=== PATIENT | female | born 1990 | race Caucasian/White ===

== ENCOUNTER → 2017-03-09 | Outpatient (CLI) | payer SELFPAY ==
[~2017-03-09] MED LIST: ALBU17AE3 IH; ALBUTEROL INHALER; ALPR0.5T PO; ALPR1T PO; AMOX500C2 PO; BACL20TA PO; CEPH-507 PO; CITA10TA70 PO; CITA20TA12 PO; CLINDAMYCIN PO; CROT60CR TP; CYCL10TA9 PO; DOXY100C2 PO; ERYT1OIN6 OP; FLUC200T45 PO; FRS325T; GUAI120S36 PO; HYDR-3714 PO; HYDR1CAP2; HYDR25CA5 PO; HYDR50CA PO; IBP800T PO; IBUP-1773 PO; IBUPROFEN; LEVO750T6 PO; METH4TAB PO; METR500T PO; MNTL10T; NAPR-243 PO; NITR-65 PO; NITR100C3 PO; ONDA-42 SL; ONDA8TAB13 PO; OXYC1TAB12 PO; PHEN200T27 PO; PRD20T PO; PREN1TAB39; PROP10TA8 PO; SULF1TAB35 PO; TEMA7.5C PO; TRAM50TA2 PO
[2017-03-11 17:31] LABS: PROGESTERONE 11.94 ng/mL
== END | disposition home or self-care (01) ==
LOC: LAB 17:42
PROVIDERS: ATTEND Obstetrics & Gynecology
DX: N97.9 Female infertility, unspecified (principal)
CPT/HCPCS: 36415; 82670; 84144

== ENCOUNTER → 2017-03-14 | Outpatient (CLI) | payer SELFPAY | LOC: LAB 17:54 | PROVIDERS: ATTEND Obstetrics & Gynecology | DX: N97.9 Female infertility, unspecified (principal) | CPT/HCPCS: 36415; 84144 ==

== ENCOUNTER 2017-04-13 17:21 | Emergency (ER) | payer SELFPAY ==
[~2017-04-13] VITALS: Ht 154.9 cm; Wt 83.9 kg
--- NOTE | 2017-04-13 17:59 | ED GI ---
General Chief Complaint: Abdominal/GI Problems Stated Complaint: STOMACH PAIN Nursing Triage Note: PT STATES SHE HAS BEEN HAVING SEVERE LOWER ABD PAIN FOR PAST 3 DAYS. PAIN WHEN URINATING AND CONSTIPATION. Sepsis Screen: No Definite Risk History of Present Illness Time Seen By Provider: 17:50 Initial Comments Patient reports 3-4 days of lower midline abdominal pain. She has had urinary frequency but no dysuria. She went to sleep at 0600 morning and awoke at 1530. She has had nothing to eat, since awakening and has just had water to drink. Timing/Duration: 2-3 Days Severity/Quality: Mild Location: Suprapubic Radiation: No Radiation Activities at Onset: None Modifying Factors: Improves With Resting Associated Symptoms: Denies Symptoms Allergies and Home Medications Allergies Coded Allergies: codeine (Unverified Adverse Reaction, Mild, NAUSEA, 04/22/15) Home Medications Alprazolam 0.5 Mg Tablet, Unknown Dose PO, (Reported) Hydroxyzine Pamoate 50 Mg Capsule, 50 MG PO Q6H, #15 Prescribed by: KANE MARQUEZ on 05/04/164 Phenazopyridine HCl 100 Mg Tablet, 100 MG PO Q8H, #6 Ref 0 Prescribed by: MOSES GARCIA on 04/13/17 1933 Propranolol HCl 10 Mg Tablet, Unknown Dose PO PRN, (Reported) Sulfamethoxazole/Trimethoprim 1 Each Tablet, 1 EACH PO BID, #6 Ref 0 Prescribed by: MOSES GARCIA on 04/13/17 1933 Temazepam 7.5 Mg Capsule, Unknown Dose PO, (Reported) Review of Systems Constitutional: no symptoms reported, see HPI Genitourinary: See HPI, Frequency, Denies Flank Pain, Denies Hematuria, Denies Urgency All Other Systems Reviewed Negative Unless Noted: Yes Past Awaanin-Ykoywc-Uyzoiz Hx Patient Social History Alcohol Use: Denies Use Recreational Drug Use: No Smoking Status: Current Everyday Smoker Type Used: Cigarettes 2nd Hand Smoke Exposure: Yes Recent Foreign Travel: No Contact w/Someone Who Travel: No Recent Infectious Disease Expo: No Recent Hopitalizations: No Immunizations Up To Date Date of Influenza Vaccine: Aug 15, 2012 Seasonal Allergies Seasonal Allergies: Yes Surgeries HX Surgeries: Yes Surgeries: Adenoidectomy, Appendectomy, Section, Tonsillectomy Respiratory Hx Respiratory Disorders: Yes Respiratory Disorders: Asthma Cardiovascular Hx Cardiac Disorders: No Neurological Hx Neurological Disorders: No Reproductive System Hx Reproductive Disorders: Yes (PREVIOUS LEFT ECTOPIC ; BILAT SALPINGECTOMIES) Sexually Transmitted Disease: No HIV/AIDS: No Female Reproductive Disorders: Endometriosis, Ovarian Cyst KARATE BLACK BELT History: Tubal Ligation Genitourinary Hx Genitourinary Disorders: Yes Genitourinary Disorders: Kidney Infection, Bladder Infection Gastrointestinal Hx Gastrointestinal Disorders: No Musculoskeletal Hx Musculoskeletal Disorders: Yes Musculoskeletal Disorders: Chronic Back Pain Endocrine Hx Endocrine Disorders: No HEENT HX ENT Disorders: No Cancer Hx Cancer: No Psychosocial Hx Psychiatric Problems: Yes (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 Physical Exam Vital Signs VS - Last 72 Hours, by Label 04/13/17 04/13/17 17:37 19:45 Temp 97.6 97.6 Pulse 88 82 Resp 20 16 B/P (MAP) 117/72 Pulse Ox 98 99 O2 Delivery Room Air Room Air Capillary Refill : Less Than 3 Seconds General Appearance: WD/WN, no apparent distress Neck: non-tender, full range of motion, supple, normal inspection Respiratory: chest non-tender, lungs clear, normal breath sounds Cardiovascular: normal peripheral pulses, regular rate, rhythm, no murmur Gastrointestinal: normal bowel sounds, soft, No distended, No guarding, No rebound, tenderness (suprapubic tenderness, pain reported at the scar. There is no erythema, warmth, induration or discharge at this site) Back: normal inspection, no CVA tenderness, no vertebral tenderness Neurologic/Psychiatric: no motor/sensory deficits, alert, normal mood/affect, oriented x 3 Skin: normal color, warm/dry Lymphatic: no adenopathy Progress/Results/Core Measures Results/Orders Lab Results Laboratory Tests Test 04/13/17 17:56 04/13/17 18:52 Range/Units Urine Color YELLOW Urine Clarity VERY CLOUDY H Urine pH 6 5-9 Urine Specific [place] 1.020 1.016-1.022 Urine Protein 2+ H NEGATIVE Urine Glucose (UA) NEGATIVE NEGATIVE Urine Ketones 3+ H NEGATIVE Urine Nitrite NEGATIVE NEGATIVE Urine Bilirubin NEGATIVE NEGATIVE Urine Urobilinogen 1 NORMAL MG/DL Urine Leukocyte Esterase 3+ H NEGATIVE Urine RBC (Auto) 1+ H NEGATIVE Urine RBC 2-5 H /HPF Urine WBC 2-5 /HPF Urine Squamous Epithelial Cells TNTC H /HPF Urine Crystals PRESENT H /LPF Urine Amorphous Sediment MOD ROSALES URATES H /LPF Urine Bacteria FEW H /HPF Urine Casts NONE /LPF Urine Mucus NEGATIVE /LPF Urine Culture Indicated NO White Blood Count 8.7 4.3-11.0 10^3/uL Red Blood Count 4.47 4.35-5.85 10^6/uL Hemoglobin 13.4 11.5-16.0 G/DL Hematocrit 38 35-52 % Mean Corpuscular Volume 85 80-99 FL Mean Corpuscular Hemoglobin 30 25-34 PG Mean Corpuscular Hemoglobin Concent 35 32-36 G/DL Red Cell Distribution Width 13.1 10.0-14.5 % Platelet Count 179 130-400 10^3/uL Mean Platelet Volume 11.6 H 7.4-10.4 FL Neutrophils (%) (Auto) 64 42-75 % Lymphocytes (%) (Auto) 27 12-44 % Monocytes (%) (Auto) 6 0-12 % Eosinophils (%) (Auto) 3 0-10 % Basophils (%) (Auto) 0 0-10 % Neutrophils # (Auto) 5.6 1.8-7.8 X 10^3 Lymphocytes # (Auto) 2.3 1.0-4.0 X 10^3 Monocytes # (Auto) 0.5 0.0-1.0 X 10^3 Eosinophils # (Auto) 0.3 0.0-0.3 10^3/uL Basophils # (Auto) 0.0 0.0-0.1 10^3/uL Sodium Level 138 135-145 MMOL/L Potassium Level 3.6 3.6-5.0 MMOL/L Chloride Level 107 98-107 MMOL/L Carbon Dioxide Level 22 21-32 MMOL/L Anion Gap 9 5-14 MMOL/L Blood Urea Nitrogen 9 7-18 MG/DL Creatinine 0.77 0.60-1.30 MG/DL Estimat Glomerular Filtration Rate > 60 BUN/Creatinine Ratio 12 Glucose Level 90 70-105 MG/DL Calcium Level 9.1 8.5-10.1 MG/DL Total Bilirubin 0.5 0.1-1.0 MG/DL Aspartate Amino Transf (AST/SGOT) 19 5-34 U/L Alanine Aminotransferase (ALT/SGPT) 21 0-55 U/L Alkaline Phosphatase 41 40-136 U/L Total Protein 6.9 6.4-8.2 GM/DL Albumin 4.0 3.2-4.5 GM/DL My Orders Orders - RADHAMOSES Urine Bedside (04/13/17 17:49) Ua Culture If Indicated (04/13/17 17:49) Ondansetron Oral Dissolve Tab (Zofran (04/13/17 18:03) Saline Lock/Iv-Start (04/13/17 18:35) Ns Iv 1000 Ml (Sodium Chloride 0.9%) (04/13/17 18:35) Cbc With Automated Diff (04/13/17 18:35) Comprehensive Metabolic Panel (04/13/17 18:35) Phenazopyridine Tablet (Pyridium Tablet) (04/13/17 19:30) Sulfamethoxazole/Trimet Ds Tab (Bactrim (04/13/17 19:21) Medications Given in ED Current Medications Medications Dose Ordered Sig/Stephanie Route Start Time Stop Time Status Last Admin Dose Admin Phenazopyridine HCl 100 mg ONCE ONCE PO 04/13/17 19:30 04/13/17 19:31 DC 04/13/17 19:26 100 MG Sodium Chloride 1,000 ml @ 0 mls/hr Q0M ONCE IV 04/13/17 18:35 04/13/17 18:37 DC 04/13/17 18:53 1,000 MLS/HR Vital Signs/I&O Vital Sign - Last 12Hours 04/13/17 04/13/17 17:37 19:45 Temp 97.6 97.6 Pulse 88 82 Resp 20 16 B/P (MAP) 117/72 Pulse Ox 98 99 O2 Delivery Room Air Room Air Blood Pressure Mean: 87 Progress Note : Time: 17:50 Progress Note Initial evaluation for abdominal pain. Will obtain labs and reevaluate. Zofran 4 mg ODT 1830 labs reviewed all essentially normal with exception of positive UA for UTI. Discussed with the patient. She reports her nausea and abdominal pain has improved. 1 L of normal saline IV for dehydration. 1900 discharge planning discussed with patient QUESTIONS answered. Departure Impression Impression: Primary Impression: Urinary tract infection Qualified Codes: N30.01 - Acute cystitis with hematuria Additional Impression: Abdominal wall pain Disposition: HOME, SELF-CARE Condition: Improved Departure-Patient Inst. Decision time for Depature: 19:00 Referrals: [facility] (PCP) Primary Care Physician SIMBA CURTIS DO (Family) Primary Care Physician Patient Instructions: Acute Abdomen (Belly Pain), Adult (DC), Urinary Tract Infection, Adult (DC) Add. Discharge Instructions: Increase water intake, 6-8 bottles per day Empty bladder frequently. 1 glass of cranberry juice daily. Take medications as prescribed. Follow-up with Dr. Curtis if continued symptoms. Return to emergency department for increased pain, fever greater than 100, new problems or concerns. All discharge instructions reviewed with patient and/or family. Voiced understanding. Scripts Phenazopyridine HCl (Pyridium) 100 Mg Tablet 100 MG PO Q8H, #6 TAB 0 Refills Prov: MOSES GARCIA 04/13/17 Sulfamethoxazole/Trimethoprim (Bactrim Ds Tablet) 1 Each Tablet 1 EACH PO BID, #6 TAB 0 Refills Prov: MOSES GARCIA 04/13/17 Copy Copies To 1: SIMBA CURTIS AMY ARNP Apr 13, 2017 17:59
[2017-04-13] MEDS ORDERED: ONDANSETRON 4 MG (ZOFRAN) ORAL DISSOLVE TAB SL STA (18:03)
[2017-04-13 18:04] LABS: BILIRUBIN,URINE NEGATIVE (NEGATIVE); KETONES,URINE 3+ (NEGATIVE); LEUKOCYTE ESTERASE ,URINE 3+ (NEGATIVE); NITRITE,URINE NEGATIVE (NEGATIVE); PH,URINE 6 (5-9); PROTEIN,URINE 2+ (NEGATIVE); UROBILINOGEN,URINE 1 MG/DL (NORMAL)
[2017-04-13 18:21] LABS: SQUAMOUS EPITHELIAL CELL,UR TNTC /HPF
[2017-04-13] MEDS ORDERED: NS IV 1000 ML 1,000 ML IV ONE (18:35)
[2017-04-13 19:03] LABS: BASOPHILS % (AUTO) 0 % (0-10); EOSINOPHILS # (AUTO) 0.3 10^3/uL (0.0-0.3); EOSINOPHILS % (AUTO) 3 % (0-10); LYMPHOCYTES # (AUTO) 2.3 X 10^3 (1.0-4.0); LYMPHOCYTES % (AUTO) 27 % (12-44); MEAN CORPUSCULAR HEMOGLOBIN 30 PG (25-34); MEAN CORPUSCULAR HGB CONC 35 G/DL (32-36); MEAN CORPUSCULAR VOLUME 85 FL (80-99); MEAN PLATELET VOLUME 11.6 FL (7.4-10.4); MONOCYTES # (AUTO) 0.5 X 10^3 (0.0-1.0); MONOCYTES % (AUTO) 6 % (0-12); NEUTROPHILS # (AUTO) 5.6 X 10^3 (1.8-7.8); NEUTROPHILS % (AUTO) 64 % (42-75); PLATELET COUNT 179 10^3/uL (130-400); RED BLOOD COUNT 4.47 10^6/uL (4.35-5.85); RED CELL DISTRIBUTION WIDTH 13.1 % (10.0-14.5); WHITE BLOOD COUNT 8.7 10^3/uL (4.3-11.0)
[2017-04-13 19:20] LABS: ALANINE AMINOTRANSFERASE 21 U/L (0-55); ANION GAP 9 MMOL/L (5-14); ASPARTATE AMINO TRANSFERASE 19 U/L (5-34); BILIRUBIN,TOTAL 0.5 MG/DL (0.1-1.0); BLOOD UREA NITROGEN 9 MG/DL (7-18); BUN/CREATININE RATIO 12; CALCIUM 9.1 MG/DL (8.5-10.1); CARBON DIOXIDE 22 MMOL/L (21-32); CHLORIDE 107 MMOL/L (98-107); CREATININE SERUM 0.77 MG/DL (0.60-1.30); GFR ESTIMATED > 60; GLUCOSE 90 MG/DL (70-105); POTASSIUM 3.6 MMOL/L (3.6-5.0); SODIUM 138 MMOL/L (135-145); TOTAL PROTEIN 6.9 GM/DL (6.4-8.2)
[2017-04-13] MEDS ORDERED: TRIM/SULFAMETH 160/800 (SEPTRA DS) TAB PO STA (19:21)
[2017-04-13] MEDS ORDERED: PHENAZOPYRIDINE 100 MG (PYRIDIUM) TABLET PO ONE (19:30)
[2017-04-13] MEDS ORDERED: PHEN-639 PO (19:33)
[2017-04-13] MEDS ORDERED: SULF1TAB35 PO (19:33)
[2017-04-13 19:45] VITALS: BP 110/63
== END 2017-04-13 19:42 | disposition home or self-care (01) ==
LOC: EDUNIT# 17:21 → ER 17:24
DX: N39.0 Urinary tract infection, site not specified (principal); J45.909 Unspecified asthma, uncomplicated; F41.9 Anxiety disorder, unspecified; F32.9 Major depressive disorder, single episode, unspecified; F17.210 Nicotine dependence, cigarettes, uncomplicated; Z90.49 Acquired absence of other specified parts of digestive tract; Z87.19 Personal history of other diseases of the digestive system; Z98.51 Tubal ligation status; Z90.722 Acquired absence of ovaries, bilateral
CPT/HCPCS: 36415; 80053; 81000; 84703; 85025

== ENCOUNTER → 2017-05-27 | Outpatient (CLI) | payer OTHER ==
[~2017-05-27] MED LIST changes: +PHEN-639 PO
== END ==
LOC: LAB 15:43
PROVIDERS: ATTEND Obstetrics & Gynecology
DX: Z32.01 Encounter for pregnancy test, result positive (principal); N96 Recurrent pregnancy loss
CPT/HCPCS: 36415; 84702

== ENCOUNTER → 2017-05-29 | Outpatient (CLI) | payer SELFPAY | LOC: LAB 15:29 | PROVIDERS: ATTEND Obstetrics & Gynecology | DX: N96 Recurrent pregnancy loss (principal); Z32.01 Encounter for pregnancy test, result positive | CPT/HCPCS: 36415; 84702 ==

== ENCOUNTER → 2017-06-21 | Outpatient (CLI) | payer SELFPAY | LOC: LAB 17:43 | PROVIDERS: ATTEND Obstetrics & Gynecology | DX: N96 Recurrent pregnancy loss (principal); Z32.01 Encounter for pregnancy test, result positive | CPT/HCPCS: 36415; 84144; 84702 ==

== ENCOUNTER → 2017-09-10 | Outpatient (CLI) | payer BC | LOC: LAB 11:25 | PROVIDERS: ATTEND Obstetrics & Gynecology | DX: N92.6 Irregular menstruation, unspecified (principal) | CPT/HCPCS: 36415; 84144; 84702 ==

== ENCOUNTER 2017-10-15 19:38 | Emergency (ER) | payer BC | END 2017-10-15 22:08 | disposition left against medical advice (07) | LOC: EDUNIT# 19:38 → ER 19:40 | DX: O21.9 Vomiting of pregnancy, unspecified (principal); Z3A.12 12 weeks gestation of pregnancy ==

== ENCOUNTER → 2017-12-12 | Outpatient (CLI) | payer BC ==
--- NOTE | 2017-12-12 17:25 | Diagnostic Imaging Report ---
INDICATION: survey. TECHNIQUE: Multiple real-time grayscale images were obtained over the gravid uterus. COMPARISON: There are no recent exams available for comparison. FINDINGS: There is a single live fetus in variable presentation. heart motion is noted and a rate of 136 bpm is recorded. There are no abnormalities identified; however, the cord insertion could not be visualized. The growth parameters are fairly uniform. The placenta is fundal and there is no previa. The amniotic fluid volume is within normal limits. The cervix is identified and measures 3.7 cm in length (normal greater than 3 cm). IMPRESSION: 1. There is a single live fetus of approximately 20 weeks gestation +/- 1.5 weeks. The EDC is May 01, 2018. 2. There are no abnormalities identified, but the cord insertion is not well visualized. If further evaluation is desired, then a short-term (4-6 weeks) follow-up ultrasound exam will be recommended. 3. The growth parameters are fairly uniform. Biometrical measurements are as follows: Biparietal 4.5 cm, age 19 weeks 5 days. Head circumference 17.71 cm, age 20 weeks 2 days. Abdominal circumference 14.18 cm, age 19 weeks 4 days. Femur length 3.33 cm, age 20 weeks 3 days. Sonographic estimate age: 20 weeks 0 days. Sonographic estimated date of delivery: 05/01/2018. Estimated Weight: 324 gm (+/- 47 gm). LMP percentile: 10%. heart rate: 136 beats per minute. number: 1 of 1. Dictated by: Dictated on workstation # [id number]
== END ==
LOC: RAD 14:57
PROVIDERS: ATTEND Obstetrics & Gynecology
DX: Z36.89 Encounter for other specified antenatal screening (principal); O99.322 Drug use complicating pregnancy, second trimester; Z3A.20 20 weeks gestation of pregnancy
CPT/HCPCS: 76805

== ENCOUNTER 2018-03-30 03:55 | Outpatient (CLI) | payer BC ==
[2018-03-30] VITALS (13 sets, daily range): BP systolic 101–121; BP diastolic 56–77
[~2018-03-30] VITALS: Ht 154.9 cm; Wt 83.9 kg
[2018-03-30 04:27] LABS: BILIRUBIN,URINE NEGATIVE (NEGATIVE); CLARITY,URINE CLEAR; COLOR,URINE YELLOW; GLUCOSE, URINE (UA) NEGATIVE (NEGATIVE); KETONES,URINE NEGATIVE (NEGATIVE); LEUKOCYTE ESTERASE ,URINE 3+ (NEGATIVE); NITRITE,URINE NEGATIVE (NEGATIVE); PH,URINE 7 (5-9); PROTEIN,URINE NEGATIVE (NEGATIVE); UROBILINOGEN,URINE 1 MG/DL (NORMAL)
[2018-03-30] MEDS ORDERED: PREN-142 PO (04:32)
[2018-03-30] MEDS ORDERED: BUPR1FIL3 SL (04:33)
[2018-03-30 04:41] LABS: AMORPHOUS SEDIMENT,UR LARGE AMOR URATES /LPF; BACTERIA,URINE FEW /HPF
[2018-03-30] MEDS ORDERED: D5 LR IV SOLUTION 1,000 ML IV ONE (05:00)
[2018-03-30 05:13] LABS: BILIRUBIN,URINE NEGATIVE (NEGATIVE); CLARITY,URINE CLEAR; COLOR,URINE YELLOW; GLUCOSE, URINE (UA) NEGATIVE (NEGATIVE); KETONES,URINE NEGATIVE (NEGATIVE); LEUKOCYTE ESTERASE ,URINE 1+ (NEGATIVE); NITRITE,URINE NEGATIVE (NEGATIVE); PH,URINE 7 (5-9); PROTEIN,URINE NEGATIVE (NEGATIVE); UROBILINOGEN,URINE NORMAL (NORMAL)
[2018-03-30 05:15] LABS: BASOPHILS % (AUTO) 0 % (0-10); EOSINOPHILS # (AUTO) 0.2 10^3/uL (0.0-0.3); EOSINOPHILS % (AUTO) 2 % (0-10); HEMATOCRIT 34 % (35-52); LYMPHOCYTES # (AUTO) 2.6 X 10^3 (1.0-4.0); LYMPHOCYTES % (AUTO) 23 % (12-44); MEAN CORPUSCULAR HEMOGLOBIN 31 PG (25-34); MEAN CORPUSCULAR HGB CONC 36 G/DL (32-36); MEAN CORPUSCULAR VOLUME 88 FL (80-99); MONOCYTES # (AUTO) 0.7 X 10^3 (0.0-1.0); MONOCYTES % (AUTO) 7 % (0-12); NEUTROPHILS # (AUTO) 7.5 X 10^3 (1.8-7.8); NEUTROPHILS % (AUTO) 69 % (42-75); PLATELET COUNT 158 10^3/uL (130-400); RED BLOOD COUNT 3.81 10^6/uL (4.35-5.85)
[2018-03-30 05:30] LABS: BACTERIA,URINE TRACE /HPF; WBC,URINE RARE /HPF
[2018-03-30] MEDS ORDERED: D5 LR IV SOLUTION 1,000 ML IV SCH (07:15)
[2018-03-30 07:44] LABS: AMPHETAMINE SCREEN, URINE NEGATIVE (NEGATIVE); BENZODIAZEPINES SCREEN URINE NEGATIVE (NEGATIVE); COCAINE SCREEN URINE NEGATIVE (NEGATIVE)
[2018-03-30 07:45] LABS: BARBITURATE SCREEN URINE NEGATIVE (NEGATIVE); CANNABINOID SCREEN, URINE NEGATIVE (NEGATIVE); METHADONE STAT NEGATIVE (NEGATIVE); METHAMPHETAMINE SCREEN URINE S NEGATIVE (NEGATIVE); OPIATE SCREEN URINE NEGATIVE (NEGATIVE); OXYCODONE STAT NEGATIVE (NEGATIVE); PROPOXYPHENE STAT NEGATIVE (NEGATIVE); TRICYCLIC ANTIDEPRESSANTS SCRE NEGATIVE (NEGATIVE)
--- NOTE | 2018-03-30 07:52 | History & Physical ---
History and Physical Date Seen by Provider: Mar 30, 2018 Time Seen by Provider: 07:45 This patient is a 27-year-old A8 white female with an EDC of 7 0348. Putting her now at 36 weeks gestation. She presented with complaint of not feeling well and is having occasional contractions. She has recently been treated for urinary tract infection. She has been found to be herbie with some regularity and bigger contractions spaced out initially with IV hydration however they are now 4-6 minutes she is demonstrated no cervical change thus far. Patient denies rupture membranes or bleeding. Allergies are none Medications are vitamins, patient reports that she just finished a course of Macrobid Past medical history, past surgical history, obstetric history, family history, and social histories are per the antepartum record HEENT exam is normal Neck is supple no lymphadenopathy no thyromegaly Abdomen is gravid soft nontender nondistended Extremities show no clubbing or cyanosis. There is no Homans sign. There is minimal pretibial pitting edema. Pelvic exam per the nurse shows a cervix once immune dilated and thick with a vertex presentation confirmed by bedside ultrasound Laboratory Tests Test 03/30/18 04:15 03/30/18 04:50 Range/Units Urine Color YELLOW YELLOW Urine Clarity CLEAR CLEAR Urine pH 7 7 5-9 Urine Specific [place] 1.010 L 1.010 L 1.016-1.022 Urine Protein NEGATIVE NEGATIVE NEGATIVE Urine Glucose (UA) NEGATIVE NEGATIVE NEGATIVE Urine Ketones NEGATIVE NEGATIVE NEGATIVE Urine Nitrite NEGATIVE NEGATIVE NEGATIVE Urine Bilirubin NEGATIVE NEGATIVE NEGATIVE Urine Urobilinogen 1 NORMAL NORMAL MG/DL Urine Leukocyte Esterase 3+ H 1+ H NEGATIVE Urine RBC (Auto) NEGATIVE NEGATIVE NEGATIVE Urine RBC NONE NONE /HPF Urine WBC 2-5 RARE /HPF Urine Squamous Epithelial Cells 2-5 10-25 H /HPF Urine Crystals PRESENT H NONE /LPF Urine Amorphous Sediment LARGE ROSALES URATES H /LPF Urine Bacteria FEW H TRACE /HPF Urine Casts NONE NONE /LPF Urine Mucus NEGATIVE SMALL H /LPF Urine Culture Indicated YES NO White Blood Count 11.0 4.3-11.0 10^3/uL Red Blood Count 3.81 L 4.35-5.85 10^6/uL Hemoglobin 12.0 11.5-16.0 G/DL Hematocrit 34 L 35-52 % Mean Corpuscular Volume 88 80-99 FL Mean Corpuscular Hemoglobin 31 25-34 PG Mean Corpuscular Hemoglobin Concent 36 32-36 G/DL Red Cell Distribution Width 13.0 10.0-14.5 % Platelet Count 158 130-400 10^3/uL Mean Platelet Volume 11.0 H 7.4-10.4 FL Neutrophils (%) (Auto) 69 42-75 % Lymphocytes (%) (Auto) 23 12-44 % Monocytes (%) (Auto) 7 0-12 % Eosinophils (%) (Auto) 2 0-10 % Basophils (%) (Auto) 0 0-10 % Neutrophils # (Auto) 7.5 1.8-7.8 X 10^3 Lymphocytes # (Auto) 2.6 1.0-4.0 X 10^3 Monocytes # (Auto) 0.7 0.0-1.0 X 10^3 Eosinophils # (Auto) 0.2 0.0-0.3 10^3/uL Basophils # (Auto) 0.0 0.0-0.1 10^3/uL Urine Opiates Screen NEGATIVE NEGATIVE Urine Oxycodone Screen NEGATIVE NEGATIVE Urine Methadone Screen NEGATIVE NEGATIVE Urine Propoxyphene Screen NEGATIVE NEGATIVE Urine Barbiturates Screen NEGATIVE NEGATIVE Ur Tricyclic Antidepressants Screen NEGATIVE NEGATIVE Urine Phencyclidine Screen NEGATIVE NEGATIVE Urine Amphetamines Screen NEGATIVE NEGATIVE Urine Methamphetamines Screen NEGATIVE NEGATIVE Urine Benzodiazepines Screen NEGATIVE NEGATIVE Urine Cocaine Screen NEGATIVE NEGATIVE Urine Cannabinoids Screen NEGATIVE NEGATIVE Lab work is as noted Vital Signs Date Time Temp Pulse Resp B/P (MAP) Pulse Ox O2 Delivery O2 Flow Rate FiO2 03/30/18 06:00 69 18 113/56 (75) Room Air 03/30/18 04:20 98.8 67 18 116/72 (87) Room Air Vital signs are stable. Patient is afebrile. Assessment and plan labor at 36 weeks gestation. We'll continue observation for signs of progression in labor. We will go ahead with appropriate GBS prophylaxis if indicated by her culture results, where in the process of obtaining that result. If she makes change we will apprise Dr. Ahumada. If she has resolution of her contractions and it is clear she is not in labor then we will entertain discharge home with follow-up in clinic Allergies and Home Medications Allergies Coded Allergies: No Known Drug Allergies (Unverified , 03/30/18) Home Medications Buprenorphine HCl/Naloxone HCl 1 Each Film, 1 EACH SL BID, (Reported) Vit No.124/Iron/FA 1 Each Tablet, 1 EACH PO DAILY, (Reported) Patient Home Medication List Home Medication List Reviewed: Yes RIVERA VELASQUEZ MD Mar 30, 2018 7:52 am
[2018-03-30] MEDS ORDERED: AMPICILLIN INJECTION 2,000 MG in NS (IVPB) 50 ML IV SCH (08:05)
[2018-03-30] MEDS ORDERED: AMPICILLIN 2000 MG INJECTION (IM/IV) ONE (08:06)
[2018-03-30] MEDS ORDERED: NS (IVPB) 50 ML ONE (08:07)
[2018-03-30] MEDS ORDERED: AMPICILLIN INJECTION 1,000 MG in NS (IVPB) 50 ML IV SCH (12:15)
== END 2018-03-30 13:35 | disposition home or self-care (01) ==
LOC: WSo 03:55 → LDRP 03:55 → WSo 13:35
PROVIDERS: ATTEND Obstetrics & Gynecology
DX: O60.03 Preterm labor without delivery, third trimester (principal); Z3A.36 36 weeks gestation of pregnancy
CPT/HCPCS: 36415; 80306; 81000; 85025; 87088; 96361; 96374; 96376; 99214

== ENCOUNTER 2018-04-10 17:17 | Outpatient (CLI) | payer BC ==
[2018-04-10] VITALS (7 sets, daily range): BP systolic 108–123; BP diastolic 62–86
[~2018-04-10] VITALS: Ht 154.9 cm; Wt 87.1 kg
[~2018-04-10 17:17] MED LIST changes: +BUPR1FIL3 SL; +PREN-142 PO
--- NOTE | 2018-04-11 14:22 | Physician Query-Final Dx ---
JUAN FRANCISCO NICOLE 04/11/18 1422: Clinic Account Progress/Dx Physician Query: Please give diagnosis Date of Service Apr 10, 2018 at 17:17 SIMBA CURTIS DO 04/12/18 1801: Clinic Account Progress/Dx DIAGNOSIS: Diagnosis contractions at 37 weeks history of suboxone usage JUAN FRANCISCO NICOLE Apr 11, 2018 14:22 SIMBA CURTIS DO Apr 12, 2018 18:01
[2018-04-18] MEDS ORDERED: ACET-77 PO (09:04)
[2018-04-18] MEDS ORDERED: IBUP-844 PO (09:04)
[2018-04-18] MEDS ORDERED: FERR325T18 PO (09:04)
[2018-04-18] MEDS ORDERED: DOCU100C37 PO (09:04)
== END 2018-04-10 20:20 ==
LOC: WSo 17:17 → LDRP 17:18 → WSo 20:20
PROVIDERS: ATTEND Obstetrics & Gynecology
DX: O47.1 False labor at or after 37 completed weeks of gestation (principal); Z3A.37 37 weeks gestation of pregnancy
CPT/HCPCS: 99214

== ENCOUNTER 2018-04-16 23:58 | Inpatient (IN) | payer BC ==
[~2018-04-16] VITALS: Ht 154.9 cm; Wt 88.9 kg
[2018-04-17] VITALS (62 sets, daily range): BP systolic 89–164; BP diastolic 50–98
[2018-04-17] MEDS ORDERED: D5 LR IV SOLUTION 1,000 ML IV ONE (00:33)
[2018-04-17 01:08] LABS: BASOPHILS % (AUTO) 0 % (0-10); EOSINOPHILS # (AUTO) 0.1 10^3/uL (0.0-0.3); EOSINOPHILS % (AUTO) 1 % (0-10); HEMATOCRIT 33 % (35-52); HEMOGLOBIN 11.7 G/DL (11.5-16.0); LYMPHOCYTES # (AUTO) 2.6 X 10^3 (1.0-4.0); LYMPHOCYTES % (AUTO) 21 % (12-44); MEAN CORPUSCULAR HEMOGLOBIN 31 PG (25-34); MEAN CORPUSCULAR HGB CONC 35 G/DL (32-36); MEAN CORPUSCULAR VOLUME 89 FL (80-99); MEAN PLATELET VOLUME 11.1 FL (7.4-10.4); MONOCYTES # (AUTO) 0.7 X 10^3 (0.0-1.0); MONOCYTES % (AUTO) 5 % (0-12); NEUTROPHILS % (AUTO) 72 % (42-75); PLATELET COUNT 174 10^3/uL (130-400); RED BLOOD COUNT 3.76 10^6/uL (4.35-5.85); RED CELL DISTRIBUTION WIDTH 13.1 % (10.0-14.5); WHITE BLOOD COUNT 12.4 10^3/uL (4.3-11.0)
[2018-04-17] MEDS: D5 LR IV SOLUTION 1,000 ML IV SCH ×3 (01:34→15:53)
[2018-04-17] MEDS ORDERED: CATHETER FLUSH 10 ML SYR IV SCH ×2 (06:00→22:00)
--- NOTE | 2018-04-17 08:48 | History & Physical-OB/GYN ---
History of Present Illness History of Present Illness Reason for visit/HPI rupture of membranes Date of Admission Apr 17, 2018 at 02:00 I consulted on this patient on 04/17/18 08:48 Attending Physician Victor Hugo Lorenzo DO Admitting Physician Candace Curtis DO Consult Allergies and Home Medications Allergies Coded Allergies: No Known Drug Allergies (Unverified , 03/30/18) Home Medications Buprenorphine HCl/Naloxone HCl 1 Each Film, 1 EACH SL BID, (Reported) Vit No.124/Iron/FA 1 Each Tablet, 1 EACH PO DAILY, (Reported) Past Mschjrn-Tqfaqs-Alyqcs Hx Patient Social History Alcohol Use: Denies Use Recreational Drug Use: No Smoking Status: Current Everyday Smoker Type Used: Cigarettes 2nd Hand Smoke Exposure: Yes Physical Abuse Screen: No Sexual Abuse: No Recent Foreign Travel: No Contact w/other who traveled: No Recent Hopitalizations: No Recent Infectious Disease Expo: No Immunizations Up To Date Pediatric: No Date of Influenza Vaccine: Aug 15, 2012 Seasonal Allergies Seasonal Allergies: No Surgeries Yes Adenoidectomy, Appendectomy, Section, Tonsillectomy Respiratory Yes Cardiovascular No Neurological No Reproductive System Expected Date of Delivery: Apr 25, 2018 Hx : 7 Hx Para: 0 Hx Total # of Abortions (Spona: 6 Hx Reproductive Disorders: Yes (PREVIOUS LEFT ECTOPIC ; BILAT SALPINGECTOMIES) Sexually Transmitted Disease: No HIV/AIDS: No Female Reproductive Disorders: Endometriosis [employer] History: Tubal Ligation Genitourinary No Kidney Infection, Bladder Infection Gastrointestinal No Musculoskeletal No Chronic Back Pain Endocrine History of Endocrine Disorders: No HEENT History of HEENT Disorders: No Cancer No Psychosocial History of Psychiatric Problem: Yes Behavioral Health Disorders: Depression Integumentary History of Skin or Integumenta: No Blood Transfusions History of Blood Disorders: No Adverse Reaction to a Blood Tr: No Family Medical History Significant Family History: Cancer Family Hx: Rectal cancer 19 FATHER Physical Exam Physical Exam Vital Signs Vital Signs Date Time Temp Pulse Resp B/P (MAP) Pulse Ox O2 Delivery O2 Flow Rate FiO2 04/17/18 07:38 65 16 112/60 (77) Room Air 04/17/18 06:40 97.1 73 18 119/62 (81) Room Air 04/17/18 05:40 76 18 105/64 (78) Room Air 04/17/18 04:40 97.0 70 18 124/64 (84) Room Air 04/17/18 03:40 97.0 69 18 115/67 (83) Room Air 04/17/18 02:40 96.9 70 18 104/67 (79) Room Air 04/17/18 01:40 96.9 65 18 114/69 (84) Room Air 04/17/18 00:15 98.5 71 18 119/78 (92) Room Air Capillary Refill : Labs Laboratory Tests 04/17/18 00:55: White Blood Count 12.4H, Red Blood Count 3.76L, Hemoglobin 11.7, Hematocrit 33L , Mean Corpuscular Volume 89, Mean Corpuscular Hemoglobin 31, Mean Corpuscular Hemoglobin Concent 35, Red Cell Distribution Width 13.1, Platelet Count 174, Mean Platelet Volume 11.1H, Neutrophils (%) (Auto) 72, Lymphocytes (%) (Auto) 21 , Monocytes (%) (Auto) 5, Eosinophils (%) (Auto) 1, Basophils (%) (Auto) 0, Neutrophils # (Auto) 9.0H, Lymphocytes # (Auto) 2.6, Monocytes # (Auto) 0.7, Eosinophils # (Auto) 0.1, Basophils # (Auto) 0.0 Clinical Quality Measures DVT/VTE Risk/Contraindication: Risk Factor Score Per Nursin RFS Level Per Nursing on Admit: 1=Low/No VTE PPX CANDACE CURTIS DO Apr 17, 2018 08:48
[2018-04-17] MEDS ORDERED: MISOPROSTOL 100 MCG (CYTOTEC) TAB PO NR (09:00)
[2018-04-17] MEDS ORDERED: MISOPROSTOL 100 MCG (CYTOTEC) TAB ONE (09:10)
[2018-04-17] MEDS ORDERED: BUTORPHANOL INJ 2 MG/ML (STADOL) VIAL IV NR (10:00)
[2018-04-17] MEDS ORDERED: BUTORPHANOL INJ 2 MG/ML (STADOL) VIAL ONE (10:08)
[2018-04-17 10:55] LABS: AMPHETAMINE SCREEN, URINE NEGATIVE (NEGATIVE); BARBITURATE SCREEN URINE NEGATIVE (NEGATIVE); BENZODIAZEPINES SCREEN URINE NEGATIVE (NEGATIVE); CANNABINOID SCREEN, URINE NEGATIVE (NEGATIVE); COCAINE SCREEN URINE NEGATIVE (NEGATIVE); METHADONE STAT NEGATIVE (NEGATIVE); METHAMPHETAMINE SCREEN URINE S NEGATIVE (NEGATIVE); OPIATE SCREEN URINE NEGATIVE (NEGATIVE); OXYCODONE STAT POSITIVE (NEGATIVE); PROPOXYPHENE STAT NEGATIVE (NEGATIVE); TRICYCLIC ANTIDEPRESSANTS SCRE NEGATIVE (NEGATIVE)
[2018-04-17] MEDS ORDERED: fentaNYL INJECTION 100 MCG/2 ML AMP IVP NR (11:15)
[2018-04-17] MEDS ORDERED: SUFENTA 0.6MCG/ML BUPIVA 0.125 100 ML ONE (11:44)
[2018-04-17] MEDS ORDERED: fentaNYL INJECTION 100 MCG/2 ML AMP ONE (12:44)
[2018-04-17] MEDS ORDERED: LIDOCAINE/EPI 2% 1:200,00 (XYLOCAINE) 10 ML VIAL ONE (15:45)
[2018-04-17] MEDS ORDERED: OXYTOCIN/NORMAL SALINE 500 ML IV ONE (15:45)
[2018-04-17] MEDS: OXYTOCIN/NORMAL SALINE 500 ML IV SCH ×2 (17:58→18:31)
[2018-04-17] MEDS ORDERED: DIBUCAINE (NUPERCAINAL) 1% OINT 30 GM TOP PRN (18:15)
[2018-04-17] MEDS ORDERED: ACETAMINOPHEN 500 MG TAB (TYLENOL) PO PRN (18:15)
[2018-04-17] MEDS ORDERED: TETANUS,DIPTH,PERTUSS P/F (BOOSTRIX) 0.5 ML VIAL IM ONE (18:15)
[2018-04-17] MEDS ORDERED: MEASLES,MUMPS,RUBELLA 1 EA INJ SQ ONE (18:15)
[2018-04-17] MEDS ORDERED: WITCH HAZEL(TUCKS) 40 EA JAR TOP PRN (18:15)
[2018-04-17] MEDS ORDERED: BENZOCAINE/MENTHOL (DERMOPLAST) 56 ML CAN TP PRN (18:15)
[2018-04-17] MEDS ORDERED: AMPICILLIN/SULBACTAM INJECTION 3 GM in NS (IVPB) 100 ML IV ONE (18:15)
--- NOTE | 2018-04-17 18:17 | OB Labor & Delivery Record ---
Vag Delivery Note Vag Delivery Note Date of Delivery: 04/17/18 Preoperative Diagnosis: Debbie Marroquin is a (28 /Para 7 / 0,Gestational Age 38 6/7 weeks with ROM (39 weeks at delivery) Postoperative Diagnosis: Same Surgeon: SIMBA CURTIS Anesthesia: epidural Delivery Type: vaginal Findings: Viable female , apgars 5#14 oz, weight Lacerations: 1st degree with bilateral sulcal tears Intact placenta with 3 vessel cord. No nuchal cord, body cord. Mild shoulder dystocia x 10 seconds. Estimated Blood Loss: 200 ml Complications: None Condition: Stable Description of Procedure: The patient is a 28 /Para 7 / 0,Gestational Age 38 6/7 weeks with ROM ( 39 weeks at delivery). She was admitted and informed consent was obtained. Her labor course was remarkable for SROM. Misoprostol x 1 as no contractions on admission. Epidural. Pitocin only started while pushing. She progressed to complete dilatation and began to push. (fecal dystocia noted at time of completion. This reduced spontaneously while pushing and then after it was completed, the head came down easily). She was then set up for delivery. The 's head was delivered atraumatically in the CHRISTIANNE position. The shoulders were delivered with Melida Maneuver and remainder of the 's body were then delivered without difficulty. Upon delivery, the head was held below the level of the perineum and the mouth and nares were bulb suctioned. The cord was doubly clamped and cut and the was handed off to the pediatric staff. An intact placenta with 3-vessel cord delivered via Santos and there was found to be minimal bleeding.~ Vigorous fundal massage was performed and the fundus was found to be firm. IV oxytocin was given. Examination of the vagina and perineum revealed bilateral sulcal tears and 1st degree perineal laceration repaired in the usual fashion with 3-0 vicryl suture. Following the repair, sponge, instrument and needle counts were correct. Mom and baby were both in stable condition in the labor suite. Vitals - Labs Vital Signs - I&O Vital Signs Date Time Temp Pulse Resp B/P (MAP) Pulse Ox O2 Delivery O2 Flow Rate FiO2 04/17/18 10:51 97.2 72 18 109/68 (82) Room Air 04/17/18 10:44 98.6 78 18 134/76 (95) Room Air 04/17/18 09:18 65 18 117/69 (85) Room Air 04/17/18 08:12 97.2 72 18 109/68 (82) Room Air 04/17/18 07:38 65 16 112/60 (77) Room Air 04/17/18 06:40 97.1 73 18 119/62 (81) Room Air 04/17/18 05:40 76 18 105/64 (78) Room Air 04/17/18 04:40 97.0 70 18 124/64 (84) Room Air 04/17/18 03:40 97.0 69 18 115/67 (83) Room Air 04/17/18 02:40 96.9 70 18 104/67 (79) Room Air 04/17/18 01:40 96.9 65 18 114/69 (84) Room Air 04/17/18 00:15 98.5 71 18 119/78 (92) Room Air Labs Laboratory Tests 04/17/18 00:55: White Blood Count 12.4H, Red Blood Count 3.76L, Hemoglobin 11.7, Hematocrit 33L , Mean Corpuscular Volume 89, Mean Corpuscular Hemoglobin 31, Mean Corpuscular Hemoglobin Concent 35, Red Cell Distribution Width 13.1, Platelet Count 174, Mean Platelet Volume 11.1H, Neutrophils (%) (Auto) 72, Lymphocytes (%) (Auto) 21 , Monocytes (%) (Auto) 5, Eosinophils (%) (Auto) 1, Basophils (%) (Auto) 0, Neutrophils # (Auto) 9.0H, Lymphocytes # (Auto) 2.6, Monocytes # (Auto) 0.7, Eosinophils # (Auto) 0.1, Basophils # (Auto) 0.0 04/17/18 10:30: Urine Opiates Screen NEGATIVE, Urine Oxycodone Screen POSITIVEH, Urine Methadone Screen NEGATIVE, Urine Propoxyphene Screen NEGATIVE, Urine Barbiturates Screen NEGATIVE, Ur Tricyclic Antidepressants Screen NEGATIVE, Urine Phencyclidine Screen NEGATIVE, Urine Amphetamines Screen NEGATIVE, Urine Methamphetamines Screen NEGATIVE, Urine Benzodiazepines Screen NEGATIVE, Urine Cocaine Screen NEGATIVE, Urine Cannabinoids Screen NEGATIVE SIMBA CURTIS DO Apr 17, 2018 6:17 pm
[2018-04-17] MEDS ORDERED: LACTATED RINGERS 1,000 ML IV ONE (19:41)
[2018-04-17] MEDS: IBUPROFEN 600 MG (MOTRIN) TAB PO SCH (19:42)
[2018-04-17] MEDS ORDERED: NALOXONE 0.4 MG/ML 1 ML (NARCAN) VIAL IV PRN (19:45)
[2018-04-17] MEDS ORDERED: EPIDURAL (SUFENTA 0.6MCG/ML BUPIVA 0.125%) 100 ML BAG EPI SCH (19:45)
[2018-04-17] MEDS ORDERED: CATHETER FLUSH 10 ML SYR IV PRN (19:45)
[2018-04-18 02:25] VITALS: BP 124/68
[2018-04-18] MEDS: IBUPROFEN 600 MG (MOTRIN) TAB PO SCH ×3 (02:25→21:43)
[2018-04-18 05:51] LABS: BASOPHILS % (AUTO) 0 % (0-10); EOSINOPHILS # (AUTO) 0.1 10^3/uL (0.0-0.3); EOSINOPHILS % (AUTO) 1 % (0-10); HEMATOCRIT 28 % (35-52); HEMOGLOBIN 9.8 G/DL (11.5-16.0); LYMPHOCYTES # (AUTO) 2.5 X 10^3 (1.0-4.0); LYMPHOCYTES % (AUTO) 19 % (12-44); MEAN CORPUSCULAR HEMOGLOBIN 32 PG (25-34); MEAN CORPUSCULAR HGB CONC 36 G/DL (32-36); MEAN CORPUSCULAR VOLUME 89 FL (80-99); MEAN PLATELET VOLUME 11.4 FL (7.4-10.4); MONOCYTES # (AUTO) 1.2 X 10^3 (0.0-1.0); MONOCYTES % (AUTO) 9 % (0-12); NEUTROPHILS # (AUTO) 9.7 X 10^3 (1.8-7.8); NEUTROPHILS % (AUTO) 72 % (42-75); PLATELET COUNT 132 10^3/uL (130-400); RED BLOOD COUNT 3.08 10^6/uL (4.35-5.85); RED CELL DISTRIBUTION WIDTH 12.9 % (10.0-14.5); WHITE BLOOD COUNT 13.5 10^3/uL (4.3-11.0)
[2018-04-18 06:20] VITALS: BP 104/67
--- NOTE | 2018-04-18 08:59 | Postpartum Progress Note ---
Note Note Day # 1 s/p Subjective: Patient is without complaints. Ambulating, voiding. Tolerating a regular diet without nausea or vomiting. Normal lochia. Pain is well controlled with oral pain medications. breast feeding Objective: Laboratory Tests Test 04/17/18 10:30 04/18/18 05:10 Range/Units Urine Opiates Screen NEGATIVE NEGATIVE Urine Oxycodone Screen POSITIVE H NEGATIVE Urine Methadone Screen NEGATIVE NEGATIVE Urine Propoxyphene Screen NEGATIVE NEGATIVE Urine Barbiturates Screen NEGATIVE NEGATIVE Ur Tricyclic Antidepressants Screen NEGATIVE NEGATIVE Urine Phencyclidine Screen NEGATIVE NEGATIVE Urine Amphetamines Screen NEGATIVE NEGATIVE Urine Methamphetamines Screen NEGATIVE NEGATIVE Urine Benzodiazepines Screen NEGATIVE NEGATIVE Urine Cocaine Screen NEGATIVE NEGATIVE Urine Cannabinoids Screen NEGATIVE NEGATIVE White Blood Count 13.5 H 4.3-11.0 10^3/uL Red Blood Count 3.08 L 4.35-5.85 10^6/uL Hemoglobin 9.8 L 11.5-16.0 G/DL Hematocrit 28 L 35-52 % Mean Corpuscular Volume 89 80-99 FL Mean Corpuscular Hemoglobin 32 25-34 PG Mean Corpuscular Hemoglobin Concent 36 32-36 G/DL Red Cell Distribution Width 12.9 10.0-14.5 % Platelet Count 132 130-400 10^3/uL Mean Platelet Volume 11.4 H 7.4-10.4 FL Neutrophils (%) (Auto) 72 42-75 % Lymphocytes (%) (Auto) 19 12-44 % Monocytes (%) (Auto) 9 0-12 % Eosinophils (%) (Auto) 1 0-10 % Basophils (%) (Auto) 0 0-10 % Neutrophils # (Auto) 9.7 H 1.8-7.8 X 10^3 Lymphocytes # (Auto) 2.5 1.0-4.0 X 10^3 Monocytes # (Auto) 1.2 H 0.0-1.0 X 10^3 Eosinophils # (Auto) 0.1 0.0-0.3 10^3/uL Basophils # (Auto) 0.0 0.0-0.1 10^3/uL 04/18/18 04/18/18 02:25 06:20 Temp 98.1 98.7 Pulse 69 79 Resp 18 18 B/P (MAP) 124/68 (86) 104/67 (79) Pulse Ox 99 97 O2 Delivery Room Air Room Air 04/18/18 00:00 Intake Total 1000 ml Balance 1000 ml Physical Exam: General - Alert and oriented, no apparent distress Abdomen - Soft, appropriately tender to palpation, non-distended, fundus firm at umbilicus Extremities - no edema, negative Mendel's bilaterally Assessment: 1. post- day # 1, status post spontaneous vaginal delivery. Recovering well, hemodynamically stable 2.. Acute blood loss anemia - iron replaced Plan: Routine care. Encourage breast feeding. Encourage ambulation. Ferrous sulfate supplementation. Plan for discharge tomorrow Vitals - Labs Vital Signs - I&O Vital Signs Date Time Temp Pulse Resp B/P (MAP) Pulse Ox O2 Delivery O2 Flow Rate FiO2 04/18/18 06:20 98.7 79 18 104/67 (79) 97 Room Air 04/18/18 02:25 98.1 69 18 124/68 (86) 99 Room Air 04/17/18 19:42 61 18 124/68 (86) Room Air 04/17/18 19:12 71 18 125/60 (81) Room Air 04/17/18 18:57 64 18 132/66 (88) Room Air 04/17/18 18:42 59 18 123/73 (90) Room Air 04/17/18 18:27 98.3 55 18 129/70 (89) Room Air 04/17/18 18:15 69 18 131/69 (89) Room Air 04/17/18 18:05 63 18 125/67 (86) Room Air 04/17/18 17:45 65 18 125/72 (89) Room Air 04/17/18 17:30 58 18 133/60 (84) Room Air 04/17/18 17:15 57 18 122/82 (95) Room Air 04/17/18 17:00 69 18 121/66 (84) Room Air 04/17/18 16:45 86 18 164/67 (99) Room Air 04/17/18 16:30 99.2 66 18 107/76 (86) Room Air 04/17/18 16:15 69 18 112/74 (87) Room Air 04/17/18 16:00 68 18 110/70 (83) Room Air 04/17/18 15:45 62 18 116/74 (88) 100 Room Air 04/17/18 15:30 71 18 98/56 (70) 99 Room Air 719/18 15:15 61 18 93/56 (68) 98 Room Air 719/18 15:00 68 18 92/63 (73) 98 Room Air 719/18 14:45 69 18 91/55 (67) 97 Room Air 7/18 14:30 71 18 94/57 (69) 98 Room Air 04/17/18 14:15 97.9 74 18 89/50 (63) 98 Room Air 719/18 13:55 73 18 92/56 (68) 98 Room Air 719/18 13:45 70 18 95/59 (71) 97 Room Air 04/17/18 13:42 68 18 95/57 (70) 97 Room Air 04/17/18 13:39 67 18 97/54 (68) 97 Room Air 04/17/18 13:36 68 18 95/54 (68) 97 Room Air 04/17/18 13:33 79 18 94/56 (69) 97 Room Air 04/17/18 13:30 70 18 95/56 (69) 97 Room Air 04/17/18 13:27 71 18 97/58 (71) 98 Room Air 04/17/18 13:24 77 18 100/56 (71) 98 Room Air 04/17/18 13:21 75 18 101/55 (70) 98 Room Air 04/17/18 13:18 76 18 103/58 (73) 99 Room Air 04/17/18 13:15 90 18 111/63 (79) 99 Room Air 04/17/18 13:12 78 18 108/63 (78) 98 Room Air 04/17/18 13:09 72 18 104/60 (75) 98 Room Air 04/17/18 13:06 83 18 107/63 (78) 98 Room Air 04/17/18 13:03 77 18 98/61 (73) 98 Room Air 04/17/18 13:00 80 18 105/60 (75) 98 Room Air 7/18 12:57 80 18 107/55 (72) 98 Room Air 7/18 12:54 81 18 116/59 (78) 98 Room Air 04/17/18 12:51 99.3 82 18 129/69 (89) 100 Room Air 04/17/18 12:45 85 18 117/65 (82) 100 Room Air 04/17/18 12:42 89 18 130/75 (93) 100 Room Air 04/17/18 12:39 90 18 125/74 (91) 100 Room Air 04/17/18 12:36 87 18 132/80 (97) 99 Room Air 04/17/18 12:33 95 18 119/98 (105) 100 Room Air 04/17/18 12:20 105 18 117/80 (92) 100 Room Air 04/17/18 12:05 73 18 110/68 (82) 99 Room Air 04/17/18 11:43 73 18 114/70 (85) 99 Room Air 04/17/18 10:51 97.2 72 18 109/68 (82) Room Air 04/17/18 10:44 98.6 78 18 134/76 (95) Room Air 04/17/18 09:18 65 18 117/69 (85) Room Air I & O 04/18/18 07:00 Intake Total 1000 ml Balance 1000 ml Labs Laboratory Tests 04/17/18 10:30: Urine Opiates Screen NEGATIVE, Urine Oxycodone Screen POSITIVEH, Urine Methadone Screen NEGATIVE, Urine Propoxyphene Screen NEGATIVE, Urine Barbiturates Screen NEGATIVE, Ur Tricyclic Antidepressants Screen NEGATIVE, Urine Phencyclidine Screen NEGATIVE, Urine Amphetamines Screen NEGATIVE, Urine Methamphetamines Screen NEGATIVE, Urine Benzodiazepines Screen NEGATIVE, Urine Cocaine Screen NEGATIVE, Urine Cannabinoids Screen NEGATIVE 04/18/18 05:10: White Blood Count 13.5H, Red Blood Count 3.08L, Hemoglobin 9.8L, Hematocrit 28L , Mean Corpuscular Volume 89, Mean Corpuscular Hemoglobin 32, Mean Corpuscular Hemoglobin Concent 36, Red Cell Distribution Width 12.9, Platelet Count 132, Mean Platelet Volume 11.4H, Neutrophils (%) (Auto) 72, Lymphocytes (%) (Auto) 19 , Monocytes (%) (Auto) 9, Eosinophils (%) (Auto) 1, Basophils (%) (Auto) 0, Neutrophils # (Auto) 9.7H, Lymphocytes # (Auto) 2.5, Monocytes # (Auto) 1.2H, Eosinophils # (Auto) 0.1, Basophils # (Auto) 0.0 SIMBA CURTIS DO Apr 18, 2018 08:59
[2018-04-18] MEDS ORDERED: DOCU100C37 PO (09:04)
[2018-04-18] MEDS ORDERED: FERR325T18 PO (09:04)
[2018-04-18] MEDS ORDERED: ACET-77 PO (09:04)
[2018-04-18] MEDS ORDERED: IBUP-844 PO (09:04)
[2018-04-18] MEDS: FERROUS SULF 325 MG (IRON) TAB PO SCH (10:27)
[2018-04-18] MEDS: PRENATAL VITAMIN 1 EA TAB PO SCH (10:27)
[2018-04-18] MEDS: DOCUSATE SODIUM 100 MG (COLACE) CAP PO SCH ×2 (10:28→21:43)
[2018-04-18 10:29] VITALS: BP 113/74
[2018-04-18 14:30] VITALS: BP 106/73
--- NOTE | 2018-04-18 14:43 | Anesthesia-Regional Post-Op ---
Regional Patient Condition Mental Status: Alert, Oriented x3 Circulation: Same as Pre-Op Headache: Absent Sensation: Full Recovery Motor Block: Absent Post Op Complications Complications None Follow Up Care/Instructions Patient Instructions None needed. Anesthesia/Patient Condition Patient is doing well, no complaints, stable vital signs, no apparent adverse anesthesia problems. No complications reported per nursing. OTONIEL AMBROSE CRNA Apr 18, 2018 14:43
[2018-04-19 03:10] VITALS: BP 126/72
[2018-04-19] MEDS: IBUPROFEN 600 MG (MOTRIN) TAB PO SCH ×2 (03:10→09:51)
[2018-04-19] MEDS: DOCUSATE SODIUM 100 MG (COLACE) CAP PO SCH (09:51)
[2018-04-19] MEDS: PRENATAL VITAMIN 1 EA TAB PO SCH (09:51)
[2018-04-19] MEDS: FERROUS SULF 325 MG (IRON) TAB PO SCH (09:51)
[2018-04-19 09:54] VITALS: BP 115/81
--- NOTE | 2018-04-19 12:23 | Discharge Inst-Women's Service ---
Discharge Inst-Women's Serv Depart Medication/Instructions New, Converted or Re-Newed RX: RX on Chart Final Diagnosis social induction vaginal delivery history of drug usage/ now on suboxone therapy Consults/Follow Up Additional Follow Up: Yes (6 week post ) Activity Activity: Activity as Tolerated Driving Instructions: You May Drive NO SMOKING: NO SMOKING Nothing Inside Vagina: No Douching, No [place], No Tampons Diet Discharge Diet: No Restrictions Symptoms to Report to : Bleeding Excessive, Pain Increased, Fever Over 101 Degrees F, Vaginal Bleeding Increase, Vaginal Discharge Foul For Any Problems or Questions: Contact Your Physician SIMBA CURTIS DO Apr 19, 2018 12:23 pm
[2018-04-19] MEDS ORDERED: TETANUS,DIPTH,PERTUSS P/F (BOOSTRIX) 0.5 ML VIAL IM ONE (12:31)
--- NOTE | 2018-04-24 16:23 | Physician Query-Final Dx ---
Final Diagnosis Give Final Diagnosis Please give Final Diagnosis RUTH STEELE Apr 24, 2018 16:23
== END 2018-04-19 13:15 | disposition home or self-care (01) | DRG 775 ==
LOC: WSo 23:58 → LDRP 23:59 → WSo 04-17 02:00 → LDRP 04-17 02:00
PROVIDERS: ADMIT Obstetrics & Gynecology; ATTEND Obstetrics & Gynecology
PROC: 10E0XZZ Delivery of Products of Conception, External Approach (ICD-10-PCS; principal; 2018-04-17)
PROC: 0HQ9XZZ Repair Perineum Skin, External Approach (ICD-10-PCS; 2018-04-17)
DX: O70.0 First degree perineal laceration during delivery (principal); O90.81 Anemia of the puerperium; D62 Acute posthemorrhagic anemia; O99.334 Smoking (tobacco) complicating childbirth; F17.210 Nicotine dependence, cigarettes, uncomplicated; Z3A.38 38 weeks gestation of pregnancy; Z37.0 Single live birth; Z23 Encounter for immunization
CPT/HCPCS: 36415; 80306; 85025; 86850; 86870; 86900; 86901; 90715; 99212

== ENCOUNTER 2021-06-13 06:00 | Emergency (ER) | payer BC, OTHER ==
[~2021-06-13] VITALS: Ht 154 cm; Wt 88.4 kg
[~2021-06-13 06:00] MED LIST changes: +ACET-78 PO; +DOCU100C37 PO; +FERR325T18 PO; +IBUP-844 PO; +SULF1TAB38 PO; +TRM50T PO
[2021-06-13] MEDS ORDERED: ONDANSETRON 4 MG (ZOFRAN) ORAL DISSOLVE TAB PO ONE (07:00)
--- NOTE | 2021-06-13 07:01 | ED Cough/URI ---
General Chief Complaint: COVID19 Suspect/Confirmed Stated Complaint: DIFFICULTY BREATHING,CHEST PAIN Nursing Triage Note: pt presents to the ed c/o sob, nvd, summers, intermittent dry cough with chest pain. pt states she has had covid twice, once in september and once in april. After coming off quarantine in april the pt reports a persistent cough, cough is worst at night. pt is a smoker and has asthma, states she does not have home rescue inhalers and breathing treatments. verbalizes vomiting twice today early this am Source: patient Exam Limitations: no limitations (ZUNILDA MORSE) History of Present Illness Date Seen by Provider: Jun 13, 2021 Time Seen by Provider: 06:35 Initial Comments CC: Chest pain 31 yo female with a recent COVID illness on May 04 present with chest pain that is reproducible on palpation. Patient states that the chest pain began when she had coughing spells due to her COVID illness. Her chest pain is constant and located on the left side. Currently rates it as a 5 out of 10. Does have pain in her back and neck that is reproducible with palpation as well. She describes this pain as a sharp pain and tightness and is worse at night when she has coughing spells. States she has tried to stop smoking, but this has not helped her chest pain. She is also complaining of sore throat, rhinorrhea, nausea, but no calf pain or LE edema. Patient does have a history of asthma and states this is a different pain than her asthma. Timing/Duration: other (Over 1 month and constant) Severity/Quality: moderate, dry cough Prior Episodes/Possible Cause: other (recent illness) Associated Symptoms: chest pain/soreness, cough, headache, nasal drainage, sore throat, other (difficult breathing) (ZUNILDA MORSE) Allergies and Home Medications Allergies Coded Allergies: No Known Drug Allergies (Unverified , 03/30/18) Patient Home Medication List Home Medication List Reviewed: Yes (DOM CHRISTY) Acetaminophen (Acetaminophen) 500 Mg Tablet, 1,000 MG PO Q8H PRN for PAIN-MILD Prescribed by: SIMBA CURTIS on 04/18/18 0904 Buprenorphine HCl/Naloxone HCl (Suboxone 8 mg-2 mg Sl Film) 1 Each Film, 1 EACH SL BID, (Reported) Entered as Reported by: FRANKY BILLY on 03/30/18 0433 Docusate Sodium (Docusate Sodium) 100 Mg Capsule, 100 MG PO BID Prescribed by: SIMBA CURTIS on 04/18/18903 Ferrous Sulfate (Ferrous Sulfate) 325 Mg Tablet, 325 MG PO DAILY Prescribed by: SIMBA CURTIS on 04/18/18903 Ibuprofen (Ibu) 600 Mg Tablet, 600 MG PO Q6H Prescribed by: SIMBA CURTIS on 04/18/18903 Ondansetron (Ondansetron Odt) 4 Mg Tab.rapdis, 4 MG PO Q6H PRN for NAUSEA/VOMITING Prescribed by: DOM CHRISTY on 06/13/21 09 Vit No.124/Iron/FA ( Vitamin Tablet) 1 Each Tablet, 1 EACH PO DAILY, (Reported) Entered as Reported by: FRANKY BILLY on 03/30/18431 Review of Systems Review of Systems Constitutional: see HPI; No dizziness EENTM: throat pain, other (rhinorrhea, tinnitus) Respiratory: cough, other (difficulty taking deep breaths) Gastrointestinal: abdominal pain, diarrhea, loss of appetite, nausea, vomiting LMP: May 30, 2021 Psychiatric/Neurological: Headache; Denies Other (dizziness) Hematologic/Lymphatic: Anemia; Denies Blood Clots, Denies Easy Bleeding, Denies Easy Bruising (ZUNILDA MORSE) Past Eazgvmq-Pnmmae-Cgivzn Hx Patient Social History Tobacco Use?: Yes Tobacco type used: Cigarettes Smoking Status: Current Everyday Smoker Use of E-Cig and/or Vaping Yogi: Current Everyday User Substance use?: No Alcohol Use?: No (ZUNILDA MORSE) Tobacco Use?: Yes Tobacco type used: Cigarettes Use of E-Cig and/or Vaping dev: No Substance use?: No (DOM CHRISTY) Immunizations Up To Date Tetanus Booster (TDap): Unknown PED Vaccines UTD: No (ZUNILDA MORSE) Seasonal Allergies Seasonal Allergies: No (ZUNILDA MORSE) Past Medical History Surgeries: Yes Abdominal, Adenoidectomy, Appendectomy, Tonsillectomy Respiratory: Yes Asthma Cardiac: No Neurological: No Last Menstrual Period: May 31, 2021 Reproductive Disorders: Yes (PREVIOUS LEFT ECTOPIC ; BILAT SALPINGECTOMIES) Female Reproductive Disorders: Endometriosis Sexually Transmitted Disease: No HIV/AIDS: No Genitourinary: No Kidney Infection, Bladder Infection Gastrointestinal: No Musculoskeletal: No Chronic Back Pain Endocrine: No HEENT: No Cancer: No Psychosocial: Yes Depression Integumentary: No Blood Disorders: No Adverse Reaction/Blood Tranf: No (ZUNILDA MORSE) Family Medical History Rectal cancer 19 FATHER Cancer (ZUNILDA MORSE) Physical Exam Vital Signs - First Documented 06/13/21 06:18 Temp 36.8 Pulse 88 Resp 18 B/P (MAP) 136/73 (94) Pulse Ox 100 O2 Delivery Room Air (DOM CHRISTY) Capillary Refill : Less Than 3 Seconds (ZUNILDA MORSE) Height: 5'1.00" Weight: 196lbs. 0.0oz. [id number]; 37.00 BMI Method:Stated General Appearance: WD/WN, mild distress Eyes: Bilateral Eye Normal Inspection, Bilateral Eye PERRL HEENT: TMs normal, pharyngeal erythema (mild), other (External auditory ear canal normal) Neck: normal inspection, other (Posterior and Left sided tenderness with palpation) Respiratory: lungs clear, normal breath sounds, no respiratory distress, no accessory muscle use, other (midsternal and left sided Tenderness with palpation) Cardiovascular: normal peripheral pulses (radial pulses), regular rate, rhythm, no edema, no murmur Gastrointestinal: non tender, soft; No distended, No guarding Extremities: no pedal edema, no calf tenderness Neurologic/Psychiatric: alert, oriented x 3 (ZUNILDA MORSE) Progress/Results/Core Measures Suspected Sepsis SIRS Temperature: Pulse: 88 Respiratory Rate: 18 Blood Pressure 136 /73 Mean: 94 (ZUNILDA MORSE) SIRS Laboratory Tests 06/13/21 07:45: White Blood Count 9.6 Laboratory Tests 06/13/21 07:45: Creatinine 0.83, Platelet Count 199, Total Bilirubin 0.6 (DOM CHRISTY) Results/Orders Lab Results Laboratory Tests Test 06/13/21 06:26 06/13/21 07:45 06/13/21 11:20 Range/Units Influenza Type A (RT-PCR) Not Detected Not Detecte Influenza Type B (RT-PCR) Not Detected Not Detecte SARS-CoV-2 RNA (RT-PCR) Detected H Not Detecte White Blood Count 9.6 4.3-11.0 10^3/uL Red Blood Count 4.91 3.80-5.11 10^6/uL Hemoglobin 15.0 11.5-16.0 g/dL Hematocrit 43 35-52 % Mean Corpuscular Volume 88 80-99 fL Mean Corpuscular Hemoglobin 31 25-34 pg Mean Corpuscular Hemoglobin Concent 35 32-36 g/dL Red Cell Distribution Width 12.3 10.0-14.5 % Platelet Count 199 130-400 10^3/uL Mean Platelet Volume 11.1 9.0-12.2 fL Immature Granulocyte % (Auto) 0 % Neutrophils (%) (Auto) 72 42-75 % Lymphocytes (%) (Auto) 21 12-44 % Monocytes (%) (Auto) 5 0-12 % Eosinophils (%) (Auto) 2 0-10 % Basophils (%) (Auto) 1 0-10 % Neutrophils # (Auto) 6.9 1.8-7.8 10^3/uL Lymphocytes # (Auto) 2.0 1.0-4.0 10^3/uL Monocytes # (Auto) 0.4 0.0-1.0 10^3/uL Eosinophils # (Auto) 0.2 0.0-0.3 10^3/uL Basophils # (Auto) 0.1 0.0-0.1 10^3/uL Immature Granulocyte # (Auto) 0.0 0.0-0.1 10^3/uL Urine Color YELLOW Urine Clarity CLEAR Urine pH 7.0 5-9 Urine Specific Matthews <=1.005 1.016-1.022 Urine Protein NEGATIVE NEGATIVE Urine Glucose (UA) NEGATIVE NEGATIVE Urine Ketones TRACE H NEGATIVE Urine Nitrite NEGATIVE NEGATIVE Urine Bilirubin NEGATIVE NEGATIVE Urine Urobilinogen 0.2 < = 1.0 MG/DL Urine Leukocyte Esterase TRACE H NEGATIVE Urine RBC (Auto) NEGATIVE NEGATIVE Urine RBC NONE /HPF Urine WBC 2-5 /HPF Urine Squamous Epithelial Cells 5-10 /HPF Urine Crystals NONE /LPF Urine Bacteria LARGE H /HPF Urine Casts NONE /LPF Urine Mucus NEGATIVE /LPF Urine Culture Indicated YES Sodium Level 138 135-145 MMOL/L Potassium Level 3.7 3.6-5.0 MMOL/L Chloride Level 104 98-107 MMOL/L Carbon Dioxide Level 24 21-32 MMOL/L Anion Gap 10 5-14 MMOL/L Blood Urea Nitrogen 10 7-18 MG/DL Creatinine 0.83 0.60-1.30 MG/DL Estimat Glomerular Filtration Rate 80 BUN/Creatinine Ratio 12 Glucose Level 90 70-105 MG/DL Calcium Level 9.8 8.5-10.1 MG/DL Corrected Calcium 9.4 8.5-10.1 MG/DL Total Bilirubin 0.6 0.1-1.0 MG/DL Aspartate Amino Transf (AST/SGOT) 18 5-34 U/L Alanine Aminotransferase (ALT/SGPT) 19 0-55 U/L Alkaline Phosphatase 53 40-136 U/L Troponin I 0.033 H 0.047 H <0.028 NG/ML C-Reactive Protein High Sensitivity 0.17 0.00-0.50 MG/DL Total Protein 7.8 6.4-8.2 GM/DL Albumin 4.5 3.2-4.5 GM/DL Procalcitonin 0.01 <0.10 NG/ML (DOM CHRISTY) My Orders Orders - DOM CHRISTY Covid 19 Inhouse Test (06/13/21 06:18) Influenza A And B By Pcr (06/13/21 06:18) Isolation Central Supply Req (06/13/21 06:18) Ondansetron Oral Dissolve Tab (Zofran (06/13/21 07:00) Troponin I (06/13/21 07:24) Cbc With Automated Diff (06/13/21 07:24) Comprehensive Metabolic Panel (06/13/21 07:24) Continuous Ekg Monitoring (06/13/21 07:24) Ekg Tracing (06/13/21 07:24) Chest 1 View, Ap/Pa Only (06/13/21 07:24) Procalcitonin (Pct) (06/13/21 07:24) Hs C Reactive Protein (06/13/21 07:24) Ketorolac Injection (Toradol Injection) (06/13/21 07:45) Ed Iv/Invasive Line Start (06/13/21 07:31) Lactated Ringers (Lr 1000 Ml Iv Solution (06/13/21 07:45) Troponin I (06/13/21 10:45) Epinephrine 1 Mg Injection (Adrenalin I (06/13/21 09:45) Diphenhydramine Injection (Benadryl Inje (06/13/21 09:45) Casirivimab/Imdevimab (Regen-Cov 1200 Mg (06/13/21 10:00) Acetaminophen Tablet (Tylenol Tablet) (06/13/21 09:45) Ondansetron Injection (Zofran Injectio (06/13/21 09:45) Acetaminophen Tablet (Tylenol Tablet) (06/13/21 10:45) Ua Culture If Indicated (06/13/21 12:56) Urine Culture (06/13/21 07:45) (DOM CHRISTY) Medications Given in ED Current Medications Medications Dose Ordered Sig/Stephanie Route Start Time Stop Time Status Last Admin Dose Admin Acetaminophen 500 mg ONCE ONCE PO 06/13/21 10:45 06/13/21 10:46 DC 06/13/21 10:38 500 MG Acetaminophen 500 mg ONCE PRN PO 06/13/21 09:45 06/13/21 10:35 500 MG Ketorolac Tromethamine 30 mg ONCE ONCE IVP 06/13/21 07:45 06/13/21 07:46 DC 06/13/21 07:59 30 MG Lactated Ringer's 1,000 ml @ 0 mls/hr Q0M ONCE IV 06/13/21 07:45 06/13/21 07:46 DC 06/13/21 07:51 1,000 MLS/HR Ondansetron HCl 4 mg ONCE ONCE PO 06/13/21 07:00 06/13/21 07:01 DC 06/13/21 07:15 4 MG Ondansetron HCl 4 mg ONCE PRN IV 06/13/21 09:45 06/13/21 10:35 4 MG (DOM CHRISTY) Vital Signs/I&O 06/13/21 06:18 Temp 36.8 Pulse 88 Resp 18 B/P (MAP) 136/73 (94) Pulse Ox 100 O2 Delivery Room Air (DOM CHRISTY) Vital Signs/I&O Capillary Refill : Less Than 3 Seconds (ZUNILDA MORSE) Blood Pressure Mean: 94 Progress Note #1: Time: 07:29 Progress Note I attest that I saw this patient alongside the medical student and agree with his documented history, physical exam and review of systems except as otherwise noted. Patient is endorsing a left-sided reproducible chest pain. Some concern for myocarditis. Pericarditis and pleurisy are also in the differential. She has no hemoptysis and is not on control nor does she smoke. She also endorses a history that her mother had a heart attack when she was 51. There is less concern for MS and an ovulating 31-year-old female. Toradol for her pain from the COVID-19, Zofran for her nausea and will get some labs, EKG chest x-ray. Progress Note #2: Time: 09:44 Progress Note We discussed monoclonal antibodies with the patient as well as the fact that they are unapproved used under an emergency use authorization. We discussed alternatives. We discussed the risks and benefits and our experience with them with the patient. Using a clinically supported decision-making process the patient has elected to do monoclonal antibody treatment. 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 We are going to administer the monoclonal antibody here in the ER while she is waiting for her delta troponin Progress Note #3: Time: 13:08 Progress Note Patient still having a headache and a little bit of nausea coming back. We will make sure she has some Zofran. She has completed her course of monoclonal antibodies and had no problems with that. Her 2nd troponin did marginally elevated and we discussed this with Dr. Joseph and he and I agree that this is due to the Covid virus and that she should follow-up in 1 month outpatient. Explained this plan to the patient and she is okay with the plan. Return precautions were discussed. She has access to a pulse oximeter. Urinalysis was misplaced but lab did find it and we are awaiting the results before she goes home. If she has a UTI then we will cover her with antibiotics (DOM CHRISTY) ECG Initial ECG Impression Date: Jun 13, 2021 Initial ECG Impression Time: 07:58 Initial ECG Rate: 65 Initial ECG Rhythm: Normal Sinus Initial ECG Intervals: Normal Initial ECG Impression: Normal Initial ECG Comparisson: No Previous ECG Available Comment Normal sinus rhythm without clinically relevant ST elevation or depression. (DOM CHRISTY) Diagnostic Imaging Diagonstic Imaging: Xray Plain Films/CT/US/NM/MRI: chest Comments [facility], [place] NAME: AMBROCIO [facility]SH[facility] REC#: [id number] PT STATUS: REG ER : 1990 PHYSICIAN: DOM CHRISTY MD ADMIT DATE: 06/13/21/ER Draft Date of Exam:06/13/21 CHEST 1 VIEW, AP/PA ONLY INDICATION: Shortness of breath and chest pain Frontal chest obtained at 0828 a.m. Comparison is made to 03/13/2007. Heart and mediastinal silhouette are normal in appearance. The lungs are clear. There is no pneumothorax or pleural fluid. IMPRESSION: Negative chest. Dictated on workstation # [id number] Dict: 06/13/21 0837 Trans: 06/13/21 0840 [facility] [id number] Interpreted by: ESPINOZA JARA MD Electronically signed by: Reviewed: Reviewed by Me (DOM CHRISTY) Consults Consults : Consulting Physician: SERENITY JOSEPH JR, MD Consults Notes Discussed the case with Dr. Joseph, cardiology. Her vital signs are probably fine she does not need to be placed in the hospital for the presentation today. He recommends just doing a 3-hour delta troponin and as long as is not shooting up significantly greater than 20% then he would just have her follow-up in the clinic in 1 month. NSAIDs and Tylenol. He is in favor of monoclonal antibodies. (DOM CHRISTY) Departure Impression Primary Impression: COVID-19 Additional Impressions: Myocarditis due to 2019 novel coronavirus Acute costochondritis Pleurisy UTI (urinary tract infection) Qualified Codes: N30.00 - Acute cystitis without hematuria Disposition: HOME, SELF-CARE Condition: Stable Departure-Patient Inst. Decision time for Depature: 13:09 (DOM CHRISTY) Referrals: SIMBA CURTIS DO (PCP) Primary Care Physician [facility] [place] (Family) Primary Care Physician SERENITY JOSEPH JR, MD Patient Instructions: COVID-19 (DC), REGEN-COV (casirivimab and imdevimab) FDA Fact Sheet, Costochondritis, Myocarditis Add. Discharge Instructions: Tylenol 1000 mg every 8 hours as necessary for fever, chills or body aches. Ibuprofen 800 mg every 8 hours as necessary for body aches, fever or chills. Alternatively you may use naproxen 500 mg twice a day. Vapor rubs such as Vicks or Mentholatum. Drink plenty of fluids. Zofran 1 tablet every 6 hours as necessary for nausea and/or vomiting. Macrobid 1 tablet twice a day with food for the next week. Follow-up with Dr. Joseph, veterinarian assistant in 1 month for recheck of your heart. Return to the ER promptly if you are experiencing oxygen saturations below 90% while at rest consistently or you are having intractable vomiting or other worrisome symptoms. All discharge instructions reviewed with patient and/or family. Voiced understanding. Scripts Nitrofurantoin Monohyd/M-Cryst (Macrobid 100 mg Capsule) 100 Mg Capsule 1 TAB PO BID for 7 Days, #14 CAP 0 Refills Prov: DOM CHRISTY 06/13/21 Ondansetron (Ondansetron Odt) 4 Mg Tab.rapdis 4 MG PO Q6H PRN for NAUSEA/VOMITING, #15 TAB 0 Refills Prov: DOM CHRISTY 06/13/21 Work/School Note: Work Release Form Date Seen in the Emergency Department: Jun 13, 2021 Return to Work: Jun 23, 2021 Restrictions: Return-No Fever (24hrs) ZUNILDA MORSE Jun 13, 2021 07:00 DOM CHRISTY Jun 13, 2021 07:30
[2021-06-13] MEDS ORDERED: LACTATED RINGERS 1,000 ML IV ONE (07:45)
[2021-06-13] MEDS: KETOROLAC 30 MG/ML VIAL IVP ONE ×2 (07:51→07:59)
[2021-06-13 08:04] LABS: BASOPHILS # (AUTO) 0.1 10^3/uL (0.0-0.1); BASOPHILS % (AUTO) 1 % (0-10); EOSINOPHILS # (AUTO) 0.2 10^3/uL (0.0-0.3); EOSINOPHILS % (AUTO) 2 % (0-10); HEMATOCRIT 43 % (35-52); LYMPHOCYTES % (AUTO) 21 % (12-44); MEAN CORPUSCULAR HEMOGLOBIN 31 pg (25-34); MEAN CORPUSCULAR HGB CONC 35 g/dL (32-36); MEAN CORPUSCULAR VOLUME 88 fL (80-99); MEAN PLATELET VOLUME 11.1 fL (9.0-12.2); MONOCYTES # (AUTO) 0.4 10^3/uL (0.0-1.0); MONOCYTES % (AUTO) 5 % (0-12); NEUTROPHILS # (AUTO) 6.9 10^3/uL (1.8-7.8); NEUTROPHILS % (AUTO) 72 % (42-75); PLATELET COUNT 199 10^3/uL (130-400); WHITE BLOOD COUNT 9.6 10^3/uL (4.3-11.0)
[2021-06-13 08:16] LABS: ALBUMIN 4.5 GM/DL (3.2-4.5); POTASSIUM 3.7 MMOL/L (3.6-5.0)
[2021-06-13 08:17] LABS: CALCIUM 9.8 MG/DL (8.5-10.1)
[2021-06-13 08:18] LABS: TOTAL PROTEIN 7.8 GM/DL (6.4-8.2)
[2021-06-13 08:20] LABS: BILIRUBIN,TOTAL 0.6 MG/DL (0.1-1.0)
[2021-06-13 08:22] LABS: CREATININE SERUM 0.83 MG/DL (0.60-1.30)
--- NOTE | 2021-06-13 08:40 | Diagnostic Imaging Report ---
INDICATION: Shortness of breath and chest pain Frontal chest obtained at 0828 a.m. Comparison is made to 03/13/2007. Heart and mediastinal silhouette are normal in appearance. The lungs are clear. There is no pneumothorax or pleural fluid. IMPRESSION: Negative chest. Dictated by: Dictated on workstation # [id number]
[2021-06-13] MEDS ORDERED: ONDA4TAB11 PO (09:22)
[2021-06-13] MEDS ORDERED: ONDANSETRON 4 MG/2 ML (SDV) Z0FRAN IV PRN (09:45)
[2021-06-13] MEDS ORDERED: EPINEPHrine INJECTION 1 MG/ML AMP IM PRN (09:45)
[2021-06-13] MEDS ORDERED: diphenhydrAMINE 50 MG/ML INJ (BENADRYL) IV PRN (09:45)
[2021-06-13] MEDS ORDERED: ACETAMINOPHEN 500 MG TAB (TYLENOL) PO PRN (09:45)
[2021-06-13] MEDS ORDERED: CASIRIVIMAB/IMDEVIMAB 1,200 MG in NS (IVPB) 250 ML IV NR (10:00)
[2021-06-13] MEDS ORDERED: ACETAMINOPHEN 500 MG TAB (TYLENOL) PO ONE (10:45)
[2021-06-13 13:04] LABS: BILIRUBIN,URINE NEGATIVE (NEGATIVE); CLARITY,URINE CLEAR; COLOR,URINE YELLOW; GLUCOSE, URINE (UA) NEGATIVE (NEGATIVE); KETONES,URINE TRACE (NEGATIVE); LEUKOCYTE ESTERASE ,URINE TRACE (NEGATIVE); NITRITE,URINE NEGATIVE (NEGATIVE); PROTEIN,URINE NEGATIVE (NEGATIVE)
[2021-06-13 13:05] VITALS: BP 172/104
[2021-06-13 13:19] LABS: BACTERIA,URINE LARGE /HPF
[2021-06-13] MEDS ORDERED: NITR-65 PO (13:25)
== END 2021-06-13 13:05 | disposition home or self-care (01) ==
LOC: EDUNIT# 06:00 → ER 06:05
DX: U07.1 COVID-19 (principal); I51.4 Myocarditis, unspecified; M94.0 Chondrocostal junction syndrome [Tietze]; R09.1 Pleurisy; N39.0 Urinary tract infection, site not specified; F17.210 Nicotine dependence, cigarettes, uncomplicated
CPT/HCPCS: 36415; 71045; 80053; 81000; 84145; 84484; 84703; 85025; 86141; 87077; 87088; 87186; 87636; 93005

== ENCOUNTER 2021-06-16 09:01 | Emergency (ER) | payer SELFPAY ==
[~2021-06-16] VITALS: Ht 154 cm; Wt 88.4 kg
[~2021-06-16 09:01] MED LIST changes: +ONDA4TAB11 PO
--- NOTE | 2021-06-16 09:27 | ED Psychosocial ---
General Chief Complaint: Psych/Social Disorder Stated Complaint: COVID+, HR Source: patient Exam Limitations: no limitations History of Present Illness Date Seen by Provider: Jun 16, 2021 Time Seen by Provider: 09:15 Initial Comments Patient is a 31-year-old female who presents to the emergency department with her third Covid illness. Patient states that she had Covid in August 2020, she had Covid in early April and was recently rediagnosed with Covid on 13 June. Patient states that she receive Regeneron on June 13. Since that time she has had increased anxiety, palpitations, lightheadedness dizziness, generalized weakness. Had a fall in the shower due to weakness this morning. Did not injure herself. Feels short of breath. States that she can get the anxiety to subside. Her mother did pass away from Covid. She denies any fevers, chills, loss of taste or smell. She has had decreased appetite. On review of the medical record from June 13 the patient was experiencing what sounded like pleuritic chest pain. She did have a positive troponin at that time. No D-dimer was done. She was not hypoxic or tachycardic at the time. Of note the patient has a heart rate in the 60s while lying com fortably in the bed but when she sits forward in order for me to auscultate her lungs her heart rate shoots to up over 105. She is not hypoxic currently. Lungs are clear. Patient states that she is a former smoker as well as an asthmatic. Denies family history of blood clots. She denies pain or swelling in her legs or upper extremities. All other review of systems reviewed and negative except as stated. Timing/Duration: this morning Severity: severe Associated Symptoms: anxiety, impaired concentration, insomnia Allergies and Home Medications Allergies Coded Allergies: codeine (Verified Allergy, Unknown, 06/16/21) Patient Home Medication List Home Medication List Reviewed: Yes Acetaminophen (Acetaminophen) 500 Mg Tablet, 1,000 MG PO Q8H PRN for PAIN-MILD Prescribed by: SIMBA CURTIS on 04/18/18 0904 Buprenorphine HCl/Naloxone HCl (Suboxone 8 mg-2 mg Sl Film) 1 Each Film, 1 EACH SL BID, (Reported) Entered as Reported by: FRANKY BILLY on 03/30/18 0433 Docusate Sodium (Docusate Sodium) 100 Mg Capsule, 100 MG PO BID Prescribed by: SIMBA CURTIS on 04/18/18 09 Ferrous Sulfate (Ferrous Sulfate) 325 Mg Tablet, 325 MG PO DAILY Prescribed by: SIMBA CURTIS on 04/18/18 09 Ibuprofen (Ibu) 600 Mg Tablet, 600 MG PO Q6H Prescribed by: SIMBA CURTIS on 04/18/18 09 Nitrofurantoin Monohyd/M-Cryst (Macrobid 100 mg Capsule) 100 Mg Capsule, 1 TAB PO BID Prescribed by: DOM CHRISTY on 06/13/21 1325 Ondansetron (Ondansetron Odt) 4 Mg Tab.rapdis, 4 MG PO Q6H PRN for NAUSEA/VOMITING Prescribed by: DOM CHRISTY on 06/13/21 0922 Vit No.124/Iron/FA ( Vitamin Tablet) 1 Each Tablet, 1 EACH PO DAILY, (Reported) Entered as Reported by: FRANKY BILLY on 03/30/18 0432 Review of Systems Constitutional: see HPI, malaise EENTM: no symptoms reported Respiratory: short of breath Cardiovascular: palpitations Gastrointestinal: loss of appetite Genitourinary: no symptoms reported : No Musculoskeletal: no symptoms reported Skin: rash ("red bumps" to feet and legs) Psychiatric/Neurological: Anxiety All Other Systems Reviewed Negative Unless Noted: Yes Past Yxrmglo-Ujpvfd-Turqxi Hx Patient Social History Tobacco Use?: Yes Smoking Status: Former Smoker Substance use?: No Alcohol Use?: No Pt feels they are or have been: No Immunizations Up To Date Tetanus Booster (TDap): Unknown PED Vaccines UTD: No Seasonal Allergies Seasonal Allergies: No Past Medical History Surgery/Hospitalization HX: SX: TONSILS, Surgeries: Yes Abdominal, Adenoidectomy, Appendectomy, Tonsillectomy Respiratory: Yes Asthma Cardiac: No Neurological: No Reproductive Disorders: Yes (PREVIOUS LEFT ECTOPIC ; BILAT SALPINGECTOMIES) Female Reproductive Disorders: Endometriosis Sexually Transmitted Disease: No HIV/AIDS: No Genitourinary: No Kidney Infection, Bladder Infection Gastrointestinal: No Musculoskeletal: No Chronic Back Pain Endocrine: No HEENT: No Cancer: No Psychosocial: Yes Depression Integumentary: No Blood Disorders: No Adverse Reaction/Blood Tranf: No Family Medical History Rectal cancer 19 FATHER Cancer Physical Exam Vital Signs - First Documented 06/16/21 09:18 Temp 36.9 Pulse 62 Resp 24 B/P (MAP) 123/76 (92) Capillary Refill : Height, Weight, BMI Height: 5'1.00" Weight: 196lbs. 0.0oz. 88.811570tz; 37.00 BMI Method:Stated General Appearance: WD/WN, mild distress HEENT: PERRL/EOMI Neck: normal inspection Respiratory: lungs clear, normal breath sounds, no respiratory distress, no a ccessory muscle use Cardiovascular: regular rate, rhythm, tachycardia (becomes quite tachycardic with simply sitting forward inthe bed, HR > 105) Gastrointestinal: normal bowel sounds, non tender, soft Extremities: normal range of motion, non-tender, normal inspection, no pedal edema, no calf tenderness Neurologic/Psychiatric: alert, normal mood/affect, oriented x 3 Appearance/Memory: appropriate appearance, appropriate insight, neat, no memory impairment Behavior/Eye Contact: cooperative, good eye contact, normal speech Thoughts/Hallucinations: normal thought pattern, no apparent hallucination Skin: normal color, warm/dry, rash (palpable pinpoint blanchable rash to feet) Progress/Results/Core Measures Results/Orders Lab Results Laboratory Tests Test 06/16/21 09:29 Range/Units White Blood Count 7.8 4.3-11.0 10^3/uL Red Blood Count 4.54 3.80-5.11 10^6/uL Hemoglobin 14.2 11.5-16.0 g/dL Hematocrit 39 35-52 % Mean Corpuscular Volume 86 80-99 fL Mean Corpuscular Hemoglobin 31 25-34 pg Mean Corpuscular Hemoglobin Concent 37 H 32-36 g/dL Red Cell Distribution Width 11.9 10.0-14.5 % Platelet Count 185 130-400 10^3/uL Mean Platelet Volume 10.7 9.0-12.2 fL Immature Granulocyte % (Auto) 0 % Neutrophils (%) (Auto) 63 42-75 % Lymphocytes (%) (Auto) 28 12-44 % Monocytes (%) (Auto) 6 0-12 % Eosinophils (%) (Auto) 2 0-10 % Basophils (%) (Auto) 1 0-10 % Neutrophils # (Auto) 4.9 1.8-7.8 10^3/uL Lymphocytes # (Auto) 2.2 1.0-4.0 10^3/uL Monocytes # (Auto) 0.5 0.0-1.0 10^3/uL Eosinophils # (Auto) 0.1 0.0-0.3 10^3/uL Basophils # (Auto) 0.0 0.0-0.1 10^3/uL Immature Granulocyte # (Auto) 0.0 0.0-0.1 10^3/uL D-Dimer < 0.27 0.00-0.49 UG/ML Sodium Level 136 135-145 MMOL/L Potassium Level 3.7 3.6-5.0 MMOL/L Chloride Level 104 98-107 MMOL/L Carbon Dioxide Level 21 21-32 MMOL/L Anion Gap 11 5-14 MMOL/L Blood Urea Nitrogen 11 7-18 MG/DL Creatinine 0.75 0.60-1.30 MG/DL Estimat Glomerular Filtration Rate 90 BUN/Creatinine Ratio 15 Glucose Level 72 70-105 MG/DL Calcium Level 9.6 8.5-10.1 MG/DL Total Creatine Kinase 39 29-168 U/L Troponin I 0.038 H <0.028 NG/ML C-Reactive Protein High Sensitivity 0.25 0.00-0.50 MG/DL My Orders Orders - RANDALL VÁSQUEZ MD Ed Iv/Invasive Line Start (06/16/21 09:30) Cbc With Automated Diff (06/16/21 09:30) Basic Metabolic Panel (06/16/21 09:30) Troponin I (06/16/21 09:30) Ekg Tracing (06/16/21 09:30) Fibrin Degradation Products (06/16/21 09:30) Chest 1 View, Ap/Pa Only (06/16/21 09:30) Creatine Kinase (06/16/21 09:35) Hs C Reactive Protein (06/16/21 09:35) Hydroxyzine Cap/Tab (Vistaril) (06/16/21 10:15) Ns Iv 1000 Ml (Sodium Chloride 0.9%) (06/16/21 10:30) Medications Given in ED Current Medications Medications Dose Ordered Sig/Stephanie Route Start Time Stop Time Status Last Admin Dose Admin Hydroxyzine Pamoate 50 mg ONCE ONCE PO 06/16/21 10:15 06/16/21 10:16 DC 06/16/21 10:21 50 MG Vital Signs/I&O 06/16/21 09:18 Temp 36.9 Pulse 62 Resp 24 B/P (MAP) 123/76 (92) Progress Progress Note : Time: 11:04 Progress Note Reevaluated patient, she states the Vistaril helped the sensation of her "heart pounding" but she still has some chest tightness. Her troponin continues to be a little bit elevated above the normal baseline. Normal EKG. Normal vital signs. Pending 1 L of IV fluids and 0.25 mg of Xanax. I have reassured the patient that the rest of her laboratory studies/chest x-ray all are completely reassuring and look very good. I believe she is just battling some significant anxiety with this third Covid infection. She has been advised to follow-up with her primary care physician, Dr. GA. I have advised her to call his office for a follow-up appointment in about a week. Return precautions given. All questions are sought and answered. Patient will be stable for discharge. Initial ECG Impression Date: Jun 16, 2021 Initial ECG Impression Time: 09:40 Initial ECG Rate: 61 Initial ECG Rhythm: Normal Sinus Initial ECG Intervals: Normal Initial ECG Impression: Normal Departure Impression Primary Impression: Anxiety Additional Impression: COVID-19 Disposition: 01 HOME, SELF-CARE Condition: Stable Departure-Patient Inst. Decision time for Depature: 11:06 Referrals: VINNY GA ANGELA C DO (PCP/Family) Primary Care Physician Patient Instructions: COVID-19 ED Add. Discharge Instructions: Take the Xanax 0.25 mg once every 6-8 hours as needed for anxiety. Continue to take [id number] ibuprofen, 600 mg which is 3 tablets every 6-8 hours with food as needed for aches and pains. Please follow-up with your primary care physician in a week Return to the emergency room for any new, concerning or emergent complaints. Scripts ALPRAZolam (XANAX TABLET) 0.25 Mg Tab 0.25 MG PO Q6H PRN for anxiety, #15 TAB Prov: RANDALL VÁSQUEZ MD 06/16/21 RANDALL VÁSQUEZ MD Jun 16, 2021 09:27
[2021-06-16 09:41] LABS: BASOPHILS % (AUTO) 1 % (0-10); EOSINOPHILS # (AUTO) 0.1 10^3/uL (0.0-0.3); EOSINOPHILS % (AUTO) 2 % (0-10); HEMATOCRIT 39 % (35-52); HEMOGLOBIN 14.2 g/dL (11.5-16.0); LYMPHOCYTES # (AUTO) 2.2 10^3/uL (1.0-4.0); LYMPHOCYTES % (AUTO) 28 % (12-44); MEAN CORPUSCULAR HEMOGLOBIN 31 pg (25-34); MEAN CORPUSCULAR HGB CONC 37 g/dL (32-36); MEAN CORPUSCULAR VOLUME 86 fL (80-99); MEAN PLATELET VOLUME 10.7 fL (9.0-12.2); MONOCYTES # (AUTO) 0.5 10^3/uL (0.0-1.0); MONOCYTES % (AUTO) 6 % (0-12); NEUTROPHILS # (AUTO) 4.9 10^3/uL (1.8-7.8); NEUTROPHILS % (AUTO) 63 % (42-75); PLATELET COUNT 185 10^3/uL (130-400); WHITE BLOOD COUNT 7.8 10^3/uL (4.3-11.0)
[2021-06-16 09:54] LABS: POTASSIUM 3.7 MMOL/L (3.6-5.0)
[2021-06-16 09:55] LABS: CALCIUM 9.6 MG/DL (8.5-10.1)
[2021-06-16 10:00] LABS: CREATININE SERUM 0.75 MG/DL (0.60-1.30)
--- NOTE | 2021-06-16 10:01 | Diagnostic Imaging Report ---
INDICATION: Shortness of breath and palpitations, Covid positive. Frontal chest obtained at 09:54 a.m. and compared to 06/13/2021. FINDINGS: Heart and mediastinal silhouette are normal in appearance. The lungs are clear. There is no pneumothorax or pleural fluid collection. IMPRESSION: Negative chest. Dictated by: Dictated on workstation # [id number]
[2021-06-16] MEDS ORDERED: hydrOXYzine (VISTARIL/ATARAX) 25 MG capsule/tablet PO ONE (10:15)
[2021-06-16] MEDS ORDERED: NS IV 1000 ML 1,000 ML IV SCH (10:30)
[2021-06-16] MEDS ORDERED: ALPR.25T PO (11:07)
[2021-06-16] MEDS ORDERED: ALPRAZolam 0.25 MG (XANAX) TAB PO ONE (11:15)
[2021-06-16 12:31] VITALS: BP 120/87
== END 2021-06-16 12:31 | disposition home or self-care (01) ==
LOC: EDUNIT# 09:01 → ER 09:04
DX: U07.1 COVID-19 (principal); F41.9 Anxiety disorder, unspecified; Z87.891 Personal history of nicotine dependence
CPT/HCPCS: 36415; 71045; 80048; 82550; 84484; 85025; 85379; 86141; 93005; 96360

== ENCOUNTER 2023-03-15 02:17 | Emergency (ER) | payer MEDICAID ==
[~2023-03-15] VITALS: Ht 155 cm; Wt 93.0 kg
[~2023-03-15 02:17] MED LIST changes: +ALPR.25T PO
[2023-03-15] MEDS ORDERED: METH1PAT TD (02:32)
--- NOTE | 2023-03-15 02:43 | ED Headache ---
General Chief Complaint: Head/Cervical Problems Stated Complaint: MIGRAINE,NAUSEA,VOMITING Nursing Triage Note: RIGHT SIDED HEADACHE BEHIND RIGHT EYE SINCE 1800. REPORTS APAP/MOTRIN INEFFECTIVE. C/O NAUSEA, REPORTS LIGHT WORSENS HEADACHE. Source: patient History of Present Illness Date Seen by Provider: Mar 15, 2023 Time Seen by Provider: 02:30 Initial Comments PT ARRIVES VIA POV FROM HOME WITH AND CHILD C/O HEADACHE SINCE 1800 THIS EVENING HEADACHE BEGAN WHILE SHE WAS SITTING AT HOME PAIN IS AROUND RIGHT EYE SHE HAS BLURRY VISION IN BOTH EYES NO CHANGES IN HEARING NO DIZZINESS NO NECK PAIN OR STIFFNESS NO FEVER OR RECENT ILLNESS NO NASAL CONGESTION OR SINUS DRAINAGE NO PARESTHESIAS OR MOTOR DEFICITS SHE HAS HAD NAUSEA AND VOMITED X 1 NO ABDOMINAL PAIN NO DIARRHEA SHE TOOK TYLENOL A COUPLE OF HOURS AGO AND SHE TOOK A MOTRIN A COUPLE OF HOURS BEFORE THAT PT HAD A ROUTINE APPOINTMENT WITH DR. GA THIS MORNING AND HAD MEDICATIONS REFILLED. PT IS ON SUBOXONE AND METHYLPHENIDATE. NO MEDICATION CHANGES, AND HAS BEEN ON THESE SAME MEDICATIONS FOR A COUPLE OF YEARS SHE TOOK AM MEDICATIONS, BUT NOT PM MEDICATIONS. SHE HAS HISTORY OF OPIATE ADDICTION ( HYDROCODONE) AND ADHD. LMP--COUPLE OF WEEKS AGO, NORMAL. PT STAES "NO CONTROL" BUT HAS HAD BILATERAL SALPINGECTOMIES, AND LEFT OOPHORECTOMY PCP: DR. GA. Allergies and Home Medications Allergies Coded Allergies: codeine (Verified Allergy, Unknown, 06/16/21) Patient Home Medication List Buprenorphine HCl/Naloxone HCl (Suboxone 8 mg-2 mg Sl Film) 1 Each Film, 1 EACH SL BID, (Reported) Entered as Reported by: FRANKY BILLY on 03/30/18 0433 Methylphenidate (Methylphenidate) 10 Mg/9 Hour Patch.td24, Unknown Dose TD, (Reported) Entered as Reported by: DAGO ALVAREZ on 03/15/23 0232 Last Action: New Order Discontinued Medications ALPRAZolam (Xanax Tablet) 0.25 Mg Tab, 0.25 MG PO Q6H PRN for anxiety Discontinued Reason: No Longer Taking Prescribed by: RANDALL VÁSQUEZ on 06/16/21 1107 Last Action: Discontinued Acetaminophen (Acetaminophen) 500 Mg Tablet, 1,000 MG PO Q8H PRN for PAIN-MILD Discontinued Reason: No Longer Taking Prescribed by: SIMBA CURTIS on 7/20/18 0904 Last Action: Discontinued Docusate Sodium (Docusate Sodium) 100 Mg Capsule, 100 MG PO BID Discontinued Reason: No Longer Taking Prescribed by: SIMBA CURTIS on 04/18/18903 Last Action: Discontinued Ferrous Sulfate (Ferrous Sulfate) 325 Mg Tablet, 325 MG PO DAILY Discontinued Reason: No Longer Taking Prescribed by: SIMBA CURTIS on 04/18/18903 Last Action: Discontinued Ibuprofen (Ibu) 600 Mg Tablet, 600 MG PO Q6H Discontinued Reason: No Longer Taking Prescribed by: SIMBA CURTIS on 04/18/18903 Last Action: Discontinued Nitrofurantoin Monohyd/M-Cryst (Macrobid 100 mg Capsule) 100 Mg Capsule, 1 TAB PO BID Discontinued Reason: No Longer Taking Prescribed by: DOM CHRISTY on 06/13/21 1325 Last Action: Discontinued Ondansetron (Ondansetron Odt) 4 Mg Tab.rapdis, 4 MG PO Q6H PRN for NAUSEA/VOMITING Discontinued Reason: No Longer Taking Prescribed by: DOM CHRISTY on 06/13/21921 Last Action: Discontinued Vit No.124/Iron/FA ( Vitamin Tablet) 1 Each Tablet, 1 EACH PO DAILY, (Reported) Discontinued Reason: No Longer Taking Entered as Reported by: FRANKY BILLY on 03/30/18 0432 Last Action: Discontinued Review of Systems Review of Systems Constitutional: no symptoms reported Eyes: See HPI Ears, Nose, Mouth, Throat: no symptoms reported Respiratory: no symptoms reported Cardiovascular: no symptoms reported Gastrointestinal: see HPI Genitourinary: no symptoms reported : No LMP: Feb 28, 2023 Musculoskeletal: no symptoms reported Skin: no symptoms reported Psychiatric/Neurological: See HPI Past Ezvcmfc-Ltsnkc-Trifiz Hx Patient Social History Tobacco Use?: Yes Tobacco type used: Cigarettes Smoking Status: Current Everyday Smoker Substance use?: Yes Substance type: Opiates/Opioids, Misuse of prescript meds Alcohol Use?: No Pt feels they are or have been: No Immunizations Up To Date Tetanus Booster (TDap): Unknown PED Vaccines UTD: No First/Initial COVID19 Vaccinat: NA Seasonal Allergies Seasonal Allergies: No Past Medical History Surgery/Hospitalization HX: SX: TONSILS, OOPHORECTOMY, ADHD Surgeries: Yes Abdominal, Adenoidectomy, Appendectomy, Oophorectomy, Tonsillectomy, Tubal Ligation Respiratory: Yes Asthma Cardiac: No Neurological: No Reproductive Disorders: Yes (PREVIOUS LEFT ECTOPIC ; BILAT SALPINGECTOMIES) Female Reproductive Disorders: Endometriosis Sexually Transmitted Disease: No HIV/AIDS: No Genitourinary: Yes Kidney Infection, Bladder Infection Gastrointestinal: No Musculoskeletal: Yes Chronic Back Pain Endocrine: No HEENT: No Cancer: No Psychosocial: Yes ADD/ADHD, Anxiety, Depression Integumentary: No Blood Disorders: No Adverse Reaction/Blood Tranf: No Family Medical History Rectal cancer 19 FATHER Cancer SOCIAL HISTORY: -SMOKES 1 PPD -ETOH--DENIES USE -DRUGS--OPIATE ADDICTION ( HYDROCODONE) --NOW ON SUBOXONE HX Surgeries: Yes (LAPAROSCOPY FOR ENDOMETRIOSIS, SALPINGECTOMY, 03/2015--DX LAP/L SALPINGECTOMY FOR HYDROSALPINX WITH TORSION/ RESECTION OF OVARIAN CYST/INFARCTED EPIPLOIC/ RIGHT SALPINGECTOMY FOR RIGHT INTRATUBAL MASS. ) Physical Exam Vital Signs Vital Signs - First Documented 03/15/23 02:25 Temp 37.1 Pulse 101 Resp 20 B/P (MAP) 132/85 (101) Pulse Ox 99 O2 Delivery Room Air Capillary Refill : Less Than 3 Seconds Height, Weight, BMI Height: 5'1.00" Weight: 196lbs. 0.0oz. 88.856264ts; 38.00 BMI Method:Stated General Appearance: WD/WN, no apparent distress, other (REEKS OF CIGARETTES; KEEPS EYES CLOSED) HEENT: PERRL/EOMI, normal ENT inspection, TMs normal, pharynx normal, other (TENDERNESS BELOW AND LATERAL TO RIGHT EYE. NO SWELLING OR ERYTHEMA OR RASH. ) Neck: non-tender, full range of motion, supple, normal inspection; No lymphadenopathy (R), No lymphadenopathy (L) Cardiovascular: regular rate, rhythm, no murmur Respiratory: normal breath sounds, no respiratory distress, no accessory muscle use Gastrointestinal: non tender, soft Extremities: normal inspection, normal capillary refill Psychiatric: alert, oriented x 3 Crainal Nerves: normal hearing, normal speech, PERRL Coordination/Gait: normal gait Motor/Sensory: no motor deficit, no sensory deficit Skin: normal color, warm/dry; No rash; tattoos/piercings Progress/Results/Core Measures Results/Orders My Orders Orders - KANE MARQUEZ DO Ketorolac Injection (Toradol Injection) (03/15/23 02:45) Promethazine Injection (Phenergan Injec (03/15/23 02:45) Diphenhydramine Injection (Benadryl Inje (03/15/23 02:45) Rx-Cyclobenzaprine Tablet (Rx-Flexeril T (03/15/23 03:10) Rx-Ondansetron Po (Rx-Zofran Po) (03/15/23 03:10) Medications Given in ED Current Medications Medications Dose Ordered Sig/Stephanie Route Start Time Stop Time Status Last Admin Dose Admin Diphenhydramine HCl 50 mg ONCE ONCE IM 03/15/23 02:45 03/15/23 02:46 DC 03/15/23 02:49 50 MG Ketorolac Tromethamine 60 mg ONCE ONCE IM 03/15/23 02:45 03/15/23 02:46 DC 03/15/23 02:49 60 MG Promethazine HCl 25 mg ONCE ONCE IM 03/15/23 02:45 03/15/23 02:46 DC 03/15/23 02:49 25 MG Vital Signs/I&O 03/15/23 03/15/23 02:25 02:49 Temp 37.1 37.1 Pulse 101 Resp 20 B/P (MAP) 132/85 (101) Pulse Ox 99 O2 Delivery Room Air 2 Blood Pressure Mean: 101 Progress Progress Note : Progress Note GIVEN: -TORADOL -PHENERGAN -BENADRYL -ZOFRAN -FLEXERIL VITALS STABLE REVIEWED PRIOR RECORDS INCLUDING ER VISITS, ADMITS/H&P'S/DISCHARGE SUMMARIES, TESTS/PROCEDURES DISCUSSED ANTICIPATED COURSE, SYMPTOMATIC TREATMENT, MEDICATIONS, NEED FOR FOLLOW UP AND RETURN PRECAUTIONS Departure Impression Primary Impression: Headache Disposition: HOME, SELF-CARE Condition: Stable Departure-Patient Inst. Referrals: VINNY GA DO (PCP/Family) Primary Care Physician Patient Instructions: Headache, Adult ED Add. Discharge Instructions: INCREASE YOUR FLUID INTAKE CONTINUE YOUR REGULAR MEDICATIONS PRESCRIBED FOLLOW UP WITH YOUR DR IF SYMPTOMS PERSIST, RETURN TO ER IF WORSE All discharge instructions reviewed with patient and/or family. Voiced understanding. KANE MARQUEZ DO Mar 15, 2023 02:43
[2023-03-15] MEDS ORDERED: diphenhydrAMINE 50 MG/ML INJ (BENADRYL) IM ONE (02:45)
[2023-03-15] MEDS ORDERED: PROMETHAZINE INJ 25 MG/ML (PHENERGAN) AMP IM ONE (02:45)
[2023-03-15] MEDS ORDERED: KETOROLAC 60 MG/2 ML VIAL IM ONE (02:45)
[2023-03-15] MEDS ORDERED: RX-CYCLOBENZAPRINE 10 MG (FLEXERIL) TAB PPK#3 PO STA (03:10)
[2023-03-15] MEDS ORDERED: RX-ONDANSETRON 4 MG ODT (ZOFRAN) PPK #4 PO STA (03:10)
[2023-03-15 03:25] VITALS: BP 141/91
== END 2023-03-15 03:28 | disposition home or self-care (01) ==
LOC: EDUNIT# 02:17 → ER 02:21
DX: R51.9 Headache, unspecified (principal); R11.2 Nausea with vomiting, unspecified; F17.210 Nicotine dependence, cigarettes, uncomplicated; Z28.310 Unvaccinated for COVID-19
CPT/HCPCS: 99284